=== PATIENT | male | born 1960 | race Caucasian/White ===

== ENCOUNTER 2019-07-25 09:51 | Outpatient (CLI) | payer OTHER, SELFPAY ==
[2019-07-25 10:14] LABS: Basophils # 0.1 10^3/uL (0.0-0.1); Basophils % 0.5 %; Eosinophils # 0.1 10^3/uL (0.0-0.8); Eosinophils % 1.1 %; Hematocrit 51.6 % (42.0-52.0); Hemoglobin 17.8 g/dL (11.7-16.6); Lymphocytes # 2.4 10^3/uL (0.8-4.8); Lymphocytes % 25.8 %; Mean Corpuscular HGB Conc 34.5 g/dL (30.0-36.0); Mean Corpuscular Volume 95.6 fL (80-94); Mean Platelet Volume 8.8 fL (7.4-10.4); Monocytes # 0.9 10^3/uL (0.2-0.9); Monocytes % 9.9 %; Neutrophils # 5.6 10^3/uL (1.8-7.7); Neutrophils % 61.8 %; Nucleated Red Blood Cells % 0 %; Platelet Count 203 10^3/cmm (130-400); Red Cell Distribution Width 12.8 % (12.1-15.1); White Blood Count 9.1 10^3/uL (4.0-10.0)
--- NOTE | 2019-07-25 10:15 | ECG_ITS ---
Measurements Intervals [place] Rate: 75 P: 41 [place]: 162 QRS: -1 QRSD: 90 T: 42 QT: 339 QTc: 379 SINUS RHYTHM No previous ECG available for comparison Electronically Signed On 07-25-2019 19:01:52 CDT by Raysa Henry M.D. [email or web address]
[2019-07-25 10:46] LABS: Anion Gap 16.9 (5-19); Blood Urea Nitrogen 12 mg/dL (8-23); Calcium 9.4 mg/dL (8.5-10.5); Carbon Dioxide 22 mmol/L (22-29); Chloride 97 mmol/L (98-107); Glomerular Filtration Rate 61.6 mL/min (90-130); Glucose 105 mg/dL (65-115); Osmolality Calculated 270 mOsm/kg (285-295); Potassium 3.9 mmol/L (3.5-5.1); Sodium 132 mmol/L (136-145)
== END 2019-07-25 09:52 | disposition home or self-care (01) ==
LOC: RT 09:54
PROVIDERS: PCP Family Medicine; Visit Provider Specialist
DX: Z01.810 Encounter for preprocedural cardiovascular examination (principal)
CPT/HCPCS: 36415; 80048; 85025; 93005

== ENCOUNTER → 2019-11-20 09:44 | Outpatient (BNVA) | payer OTHER, SELFPAY | PROVIDERS: PCP Family Medicine; Visit Provider Surgery | DX: Z20.828 Contact with and (suspected) exposure to other viral communicable diseases (principal); R11.2 Nausea with vomiting, unspecified | CPT/HCPCS: 87635 ==

== ENCOUNTER 2019-11-27 08:41 | Day surgery (SDC) | payer OTHER, SELFPAY ==
[2019-11-25 11:46] VITALS: BMI 24.7
[2019-11-27 08:57] VITALS: BP 159/106; PULSE 86; RESP 18; TEMP 36.8; O2SAT 96
[2019-11-27] MEDS: sodium chloride 0.9% 1,000 ML 30 ML IV (09:02)
--- NOTE | 2019-11-27 09:11 | W.PM.OPSUD ---
Surgery/Procedure H&P Update DATE OF PROCEDURE: November 27, 2019 DATE H&P PERFORMED: 10/31/19 H&P UPDATE INFORMATION: I have reviewed H&P completed within last 30 days, I have examined patient prior to procedure and No changes to prior documentation PREOP DIAGNOSIS: Nausea and vomiting PLANNED PROCEDURE: Operation Date: 11/27/19 09:45 Proposed Procedures p [id number] R11.2 K21.9(Not Applicable) - Evelio Watkins MD
--- NOTE | 2019-11-27 09:13 | ANES.PREANE2 ---
Pre-Anesthetic Assessment Pre-Anesthetic Assessment: Height/Weight: Height 1.83 m Weight 82.554 kg Temp Pulse Resp BP Pulse Ox 98.2 F 86 18 159/106 96 11/27/19 08:57 11/27/19 08:57 11/27/19 08:57 11/27/19 08:57 11/27/19 08:57 Preop Diagnosis: Nausea and vomiting Proposed Procedure: Operation Date: 11/27/19 09:45 Proposed Procedures p [id number] R11.2 K21.9(Not Applicable) - Evelio Watkins MD Familial anesthetic complications: none Was Beta Angela taken within 24 hours: N/A Last intake: Intake Last Liquid Date 11/26/19 Last Liquid Time 19:00 Last Solid Date 11/26/19 Last Solid Time 19:00 Social: Social History: No alcohol and No tobacco Comment: former smoker Exam: Pre-Anes Outpt Exam: alert, oriented x 3, clear to auscultation bilaterally and regular rate & rhythm Airway: Cervical ROM: WNL MP: 2 Dentition: False Pulmonary: Pulmonary: COPD CV/HEM: CV/HEM: HTN Metabolic: Metabolic: Hyperlipidemia Musc/skel: Musc/skel: Lower Back Pain Anesthetic Plan: ASA status: 3 Anesthesia: MAC Risk of > 500 ml blood loss (7ml/kg in children): No Meds/Allergies Current Medications: Current Medications Generic Name Dose Route Start Last Admin Trade Name Freq PRN Reason Stop Dose Admin Sodium Chloride 1,000 mls @ 30 ml s/hr 11/27/19 09:00 11/27/19 09:02 Sodium Chloride 0.9% IV 11/28/19 08:59 30 mls/hr .Q24H DASHAWN Administration PFSH Anesthesia PFSH: Medical History COPD (chronic obstructive pulmonary disease) GERD (gastroesophageal reflux disease) History of colon polyps Hypertension Surgical History History of appendectomy History of back surgery Hx of inguinal hernia surgery Status post colonoscopy Data Anesthesia Cardiac Studies: No Data to Display
[2019-11-27 09:35] VITALS: BP 140/93; PULSE 101; RESP 18; TEMP 36.6; O2SAT 97
--- NOTE | 2019-11-27 09:39 | ANE.PACU2 ---
Inpatient post-anesthesia follow up: Airway intact: Yes Vital signs: Temperature 97.8 F Pulse Rate 101 Respiratory Rate 18 Blood Pressure 140/93 Pulse Oximetry 97 Oxygen Delivery Me thod Nasal Cannula Oxygen Flow Rate 3 Fraction of Inspir ed Oxygen Hydration adequate: Yes Nausea and vomiting: No Pain level: 1 Mental status: Baseline
[2019-11-27 09:44] VITALS: BP 127/85; PULSE 81; RESP 18; O2SAT 98
== END 2019-11-27 09:53 | disposition home or self-care (01) ==
PROVIDERS: PCP Family Medicine; Visit Provider Surgery
PROC: 0DJ08ZZ Inspection of Upper Intestinal Tract, Via Natural or Artificial Opening Endoscopic (ICD-10-PCS; CPT 43235; principal; 2019-11-27 09:45)
DX: R11.2 Nausea with vomiting, unspecified (principal); K29.70 Gastritis, unspecified, without bleeding; K44.9 Diaphragmatic hernia without obstruction or gangrene; J44.9 Chronic obstructive pulmonary disease, unspecified; I10 Essential (primary) hypertension; E78.5 Hyperlipidemia, unspecified; K21.9 Gastro-esophageal reflux disease without esophagitis
CPT/HCPCS: 12345; 43239; 88305; J2704; J7030

== ENCOUNTER 2019-12-23 09:51 | Outpatient (CLI) | payer OTHER, SELFPAY ==
--- NOTE | 2019-12-23 10:00 | NM_ITS ---
WS: [id number] NUCLEAR MEDICINE HIDA SCAN WITH GALLBLADDER EJECTION FRACTION HISTORY: right upper quadrant pain COMPARISON: None available. TECHNIQUE: The patient was intravenously injected with 7.7 mCi of TC99m Mebrofenin. Immediate imaging over the right upper quadrant was followed by 5 minute image and additional images for a total of 60 minutes. Normal uptake of radiotracer throughout the liver. Activity identified in the gallbladder at 40 minutes and well distended by 60 minutes. Activity in the proximal small bowel was seen by 20 minutes. Good washout of the radiotracer from the liver by 60 minutes. The patient then drank 8 ounces of Ensure Plus. Ejection fraction at 60 minutes was 85%. Normal GB ej ection fraction is 35-75%. Post fatty meal symptoms: None. NM/NM hepatobiliary w phar* [id number] IMPRESSION: 1. Normal HIDA scan. 2. Normal gallbladder ejection fraction.
== END 2019-12-23 09:52 | disposition home or self-care (01) ==
PROVIDERS: PCP Family Medicine; Visit Provider Surgery
DX: R10.11 Right upper quadrant pain (principal)
CPT/HCPCS: 78227; A9537

== ENCOUNTER → 2020-01-08 10:18 | Outpatient (BNVA) | payer OTHER, SELFPAY | PROVIDERS: PCP Family Medicine; Visit Provider Surgery | DX: R10.11 Right upper quadrant pain (principal) | CPT/HCPCS: 87635 ==

== ENCOUNTER 2020-01-12 13:28 | Outpatient (CLI) | payer OTHER, SELFPAY ==
[2020-01-12] MEDS: iohexol 300 mg/mL 50 mL Btl PO (13:33)
[2020-01-12 14:56] LABS: Blood Urea Nitrogen 12 mg/dL (8-23); Glomerular Filtration Rate 67.8 mL/min (90-130)
--- NOTE | 2020-01-12 15:00 | CT_ITS ---
WS: [id number] Exam: CT abdomen pelvis w con* [id number] Date/Time of Exam: 01/12/2020 1:32 PM Reason For Exam: R10.11 - Right upper quadrant pain DLP: 1160.[address] scans at [facility] use at least one of these dose optimization techniques: automat ed exposure control; mA and/or kV adjustment per patient size (includes targeted exams where dose is matched to clinical indication); or iterative reconstruction. Comparison 07/15/2018. Minimal infiltrates in the bilateral lower lobes. Moderate size hiatal hernia. Fatty liver. The gallb ladder is unremarkable. The spleen, pancreas and aorta appear normal. The portal vein and IVC are pat ent. The abdominal aorta is normal in caliber. 2.3 cm left renal cyst. Tiny subcentimeter right renal cyst. The kidneys are otherwise normal in appearance. Unremarkable adrenal glands. No free air. No l ymphadenopathy. Small bowel loops are not dilated. The appendix is surgically absent. No significant large bowel abnormality seen. Fat filled left inguinal hernia. Intact urinary bladder. No pelvic mass or lymphadenopathy. No destructive bone lesions. CT/CT abdomen pelvis w con* [id number] IMPRESSION: 1. Moderate-sized hiatal hernia. 2. Fat filled left inguinal hernia. 3. No mass, lymphadenopathy or acute finding in the abdomen or pelvis. 4. Minimal infiltrates in the bilateral lower lobes. Developing pneumonia is no t excluded.
[2020-01-12] MEDS: iohexol 300 mg/mL 100 mL Btl IV (15:03)
== END 2020-01-12 13:29 | disposition home or self-care (01) ==
PROVIDERS: PCP Family Medicine; Visit Provider Surgery
DX: R10.11 Right upper quadrant pain (principal); K44.9 Diaphragmatic hernia without obstruction or gangrene; K40.90 Unilateral inguinal hernia, without obstruction or gangrene, not specified as recurrent; R91.8 Other nonspecific abnormal finding of lung field
CPT/HCPCS: 74177; 82565; 84520; Q9967

== ENCOUNTER 2020-01-14 08:56 | Day surgery (SDC) | payer OTHER, SELFPAY ==
[2020-01-13 13:48] VITALS: BMI 23.6
[2020-01-14] VITALS (16 sets, daily range): BP systolic 131–176; BP diastolic 68–126; PULSE 80–98; RESP 15–18; TEMP 36.6–37.3; O2SAT 93–99
[2020-01-14] MEDS: sodium chloride 0.9% 1,000 ML 30 ML IV (09:34)
--- NOTE | 2020-01-14 09:55 | ANES.PREANE2 ---
Pre-Anesthetic Assessment Pre-Anesthetic Assessment: Height/Weight: Height 1.83 m Weight 79.01 kg Temp Pulse Resp BP Pulse Ox 98.1 F 84 18 143/117 96 01/14/20 09:14 01/14/20 09:14 01/14/20 09:14 01/14/20 09:14 01/14/20 09:14 Preop Diagnosis: Nausea and vomiting Proposed Procedure: Operation Date: 01/14/20 10:35 Proposed Procedures p Laparoscopic possible open Cholecystectomy 91247 R10.11(Not Applicable) - Evelio Watkins MD Familial anesthetic complications: None Was Beta Angela taken within 24 hours: N/A Last intake: Intake Last Liquid Date 01/13/20 Last Liquid Time 20:00 Last Solid Date 01/13/20 Last Solid Time 17:30 Social: Social History: Alcohol Comment: 1-2 glasses of whiskey and coke a night (denies any withdrawal) Exam: Pre-Anes Outpt Exam: alert, oriented x 3, clear to auscultation bilaterally and regular rate & rhythm Airway: Cervical ROM: WNL MP: 3 Dentition: Full Pulmonary: Pulmonary: COPD CV/HEM: CV/HEM: HTN GI: GI: GERD Anesthetic Plan: ASA status: 3 Anesthesia: General Risk of > 500 ml blood loss (7ml/kg in children): No Meds/Allergies Current Medications: Current Medications Generic Name Dose Route Start Last Admin Trade Name Freq PRN Reason Stop Dose Admin Sodium Chloride 1,000 mls @ 30 ml s/hr 01/14/20 07:30 01/14/20 09:34 Sodium Chloride 0.9% IV 01/15/20 07:29 30 mls/hr .Q24H DASHAWN Administration PFSH Anesthesia PFSH: Medical History (Updated 12/30/19 @ 16:28 by Evelio Watkins MD) COPD (chronic obstructive pulmonary disease) GERD (gastroesophageal reflux disease) History of colon polyps Hypertension Surgical History H/O esophagogastroduodenoscopy (11/27/19) hiatal hernia, gastritis History of appendectomy History of back surgery Hx of inguinal hernia surgery Status post colonoscopy Data Anesthesia Cardiac Studies: No Data to Display
--- NOTE | 2020-01-14 13:05 | PM.OP ---
Operative Report Date of procedure: January 14, 2020 Pre-op Diagnosis: Chronic cholecystitis Post-op diagnosis: same Procedure Done: Laparoscopic cholecystectomy Specimens removed/disposition: Gallbladder Surgeon: Evelio Watkins Anesthesia: General Procedure: The patient was taken to the operating room and was intubated under general anesthesia. After the antibiotic had been administered, the abdomen was prepped and draped in a sterile manner. Using a #15 blade, a 1 centimeter infraumbilical curvilinear incision was made and using an open Angel technique the peritoneal cavity was entered. A 10 millimeter port was placed and 15 millimeters of pneumoperitoneum was created. A 10 millimeter, 30 degrees scope was then introduced. Three 5 millimeter ports were placed in the epigastric, midclavicular and the anterior axillary line two fingerbreadths below the costal margin on the right side under the direct visualization. Ratcheted forceps were introduced into the lateral most port and was used to retract the fundus of the gallbladder cephalad and using forceps the infundibulum of the gallbladder was retracted laterally. Using L-hook cautery the peritoneum overlying the Calot's triangle was opened medially and laterally until the cystic duct and the cystic artery were skeletonized. Dissection was carried along the body of the gallbladder and after ensuring critical view of safety, 4 clips applied on the cystic duct and 3 clips applied on the cystic artery and cut leaving, 3 clips on the remaining portion of the duct and 2 clips on the remaining portion of the artery. The rest of the gallbladder was dissected off the liver using L-hook cautery. There was a small opening in the body of the gallbladder with spillage of bile which was irrigated and suctioned out. There was no spillage of stones noted. There was no bleeding or bile leaking noted from the gallbladder fossa and the clips appeared to be in place. An EndoCatch bag was introduced to remove the gallbladder. All the ports were removed under direct visualization and there was no bleeding noted from the port sites. The fascia of the umbilicus was closed using [id number] 0 Vicryl sutures and the subcutaneous tissue was approximated using 3-0 Vicryl sutures. The skin at all four ports were closed using 4-0 Monocryl and Dermabond. A total of 10 millimeters of 0.5% Marcaine was infiltrated around the port sites. The patient was stable throughout the procedure.
[2020-01-14] MEDS: fentaNYL 50 mcg/mL INJ 2mL IVP ×2 (13:11→13:16)
[2020-01-14] MEDS: morphine 4 mg/mL SDV 1 mL 2 MG IVP ×2 (13:22→13:28)
[2020-01-14] MEDS: HYDROcodone-acetaminophen 5-325 mg Tablet 1 TAB PO (13:59)
--- NOTE | 2020-01-14 21:07 | ANE.PACU2 ---
Inpatient post-anesthesia follow up: Airway intact: Yes Vital signs: Temperature 97.9 F Pulse Rate 84 Respiratory Rate 18 Blood Pressure 131/94 Pulse Oximetry 93 Oxygen Delivery Me thod Room Air Oxygen Flow Rate 8 Fraction of Inspir ed Oxygen Hydration adequate: Yes Nausea and vomiting: No Pain level: 2 Mental status: Baseline
--- NOTE | 2020-01-15 14:44 | W.PM.OPSUD ---
Surgery/Procedure H&P Update DATE OF PROCEDURE: January 14, 2020 DATE H&P PERFORMED: 12/30/19 H&P UPDATE INFORMATION: I have reviewed H&P completed within last 30 days, I have examined patient prior to procedure and No changes to prior documentation PREOP DIAGNOSIS: Chronic cholecystitis PLANNED PROCEDURE: Operation Date: 01/14/20 10:35 Proposed Procedures p Laparoscopic possible open Cholecystectomy 99521 R10.11(Not Applicable) - Evelio Watkins MD
== END 2020-01-14 14:15 | disposition home or self-care (01) ==
PROVIDERS: PCP Family Medicine; Visit Provider Surgery
PROC: 0FT44ZZ Resection of Gallbladder, Percutaneous Endoscopic Approach (ICD-10-PCS; CPT 47562; principal; 2020-01-14 10:35)
DX: K81.1 Chronic cholecystitis (principal); J44.9 Chronic obstructive pulmonary disease, unspecified; I10 Essential (primary) hypertension; K21.9 Gastro-esophageal reflux disease without esophagitis; Z79.82 Long term (current) use of aspirin
CPT/HCPCS: 47562; 12345; 88304; J0690; J1100; J2250; J2270; J2405; J2704; J2710; J3010; J3490; J7030

== ENCOUNTER 2020-02-25 11:49 | Emergency (ER) | payer OTHER, SELFPAY ==
[2020-02-25 12:11] VITALS: BP 160/89; PULSE 101; RESP 16; TEMP 36.7; O2SAT 94; BMI 23.7
[2020-02-25 12:14] VITALS: BP 148/98; PULSE 90; RESP 20; TEMP 36.6; O2SAT 95
--- NOTE | 2020-02-25 12:18 | XR_ITS ---
WS: [id number] Exam: XR chest 1V portable [id number] Date/Time of Exam: 02/25/2020 12:18 PM Reason For Exam: n/v/d No priors. Findings: The lungs are clear and fully expanded. Costophrenic angles are sharp. No infiltrates. Bronchovascula r relief appears normal. Cardiac silhouette is unremarkable. Bony elements are intact. XR/XR chest 1V portable [id number] IMPRESSION: Unremarkable chest radiograph.
--- NOTE | 2020-02-25 12:19 | XR_ITS ---
WS: [id number] Exam: XR KUB [id number] Date/Time of Exam: 02/25/2020 12:19 PM Reason For Exam: n/v/d Mild gaseous distention of several small bowel loops in the upper right quadrant. There is scattered gas in the large bowel. No free air noted. Visualized organ margins are intact. Signs of prior cholec ystectomy. Moderate degenerative changes of the lumbar spine. Circular metallic density superimposing the right pelvic region. This may represent a soft tissue foreign body or metallic density in the GI tract. XR/XR KUB [id number] IMPRESSION: 1. Findings most suggestive of mild ileus. No sign of delgado bowel obstruction o r pneumoperitoneum.
--- NOTE | 2020-02-25 12:36 | ED_ITS ---
HPI - Nausea/Vomiting/Diarrhea General: Chief complaint: Nausea/Vomiting/Diarrhea Stated complaint: N/V, HOWARD Time Seen by Provider: 02/25/20 12:17 Source: patient Mode of arrival: ambulatory Limitations: no limitations History of Present Illness: HPI Narrative: Pleasant 60-year-old male patient presents to the emergency department with 7-day history of nausea vomiting diarrhea. States at onset of nausea vomiting 7 days ago, states hurt all over, even my hair hurts . He reports recent gallbladder removal in December 2019. States incision site healing, denies complications since surgery. Surgery completed by Dr. Watkins. He denies ill contacts, states has emphysema and has a quarantine himself to home as he does not want to be infected with Covid due to his lung disease. He denies change in breathing pattern, change of sputum from baseline or cough. Reports onset of nausea vomiting diarrhea x7 days, last attempted to eat last night but vomited it up. Reports diarrhea is chronic, almost daily. Relates diarrhea to recent cholecystectomy. He also reports chronic bloating of the abdomen, denies chest pain. MD elicited complaint: nausea, vomiting, diarrhea and abdominal pain (slight RUQ) Pertinent past history: abdominal surgery (Cholecystectomy) Onset (ago): day(s) (7) Description of vomiting: food contents and watery Description of diarrhea: other (Brown loose) Associated nausea: Yes Associated abdominal pain: Yes Location of pain: RUQ and Other (Dull ache) Pain consistency: intermittent Severity: mild Pain scale (0-10): 2 Quality: dull Exacerbating factors: eating Relieving factors: none Context: recent surgery/procedure and history of abdominal surgery Associated symtoms: Reports bloating, cough (Chronic), fatigue, fevers/chills, headache(s), malaise, myalgias, nausea and short of breath; Denies anxiety, chest pain, dysuria or palpitations Treatment prior to arrival: immodium Review of Systems General: Reports: 10 or more systems reviewed and unremarkable except in HPI and below Const: Reports: chills, body aches, fatigue and malaise; Denies: fever(s) Eyes: Denies: blurry vision, eye discomfort, eye redness or yellow eyes ENMT: Denies: throat pain, dental pain or disequilibrium Card: Reports: dyspnea on exertion (chronic); Denies: chest pain, palpitations, irregular heart rhythm, edema or swelling of feet/ankles Resp: Reports: non-productive cough; Denies: dyspnea, productive cough, wheezing, pain on inspiration, hemoptysis or chest congestion GI: Reports: abdominal pain, nausea, vomiting, diarrhea and bloating; Denies: hematemesis, heartburn, constipation, GI cramping or pain on defecation : Denies: dysuria Musc: Reports: muscle weakness; Denies: neck pain, back pain, joint pain or joint swelling Skin/Breast: Denies: rash or pruritus Neuro: Reports: headache(s) Psych: Denies: anxiety, depression or change in appetite Cesar/Lymph: Denies: easy bruising PFSH ED PFSH: Medical History COPD (chronic obstructive pulmonary disease) GERD (gastroesophageal reflux disease) History of colon polyps Hypertension Surgical History H/O esophagogastroduodenoscopy (11/27/19) hiatal hernia, gastritis History of appendectomy History of back surgery Hx of inguinal hernia surgery Status post colonoscopy Status post laparoscopic cholecystectomy (01/14/20) Social History Smoking and tobacco status: former smoker Alcohol intake: current Alcohol intake frequency: 0-2 Drinks per Day Physical Exam Const: COMMON NORMALS: no acute distress, patient oriented x3, healthy appearing, alert and well nourished GENERAL APPEARANCE: cooperative, comfortable, well kempt, well developed and well hydrated; not in distress NUTRITIONAL APPEARANCE: thin ORIENTATION/CONSCIOUSNESS: Yes awake, Yes oriented to person, Yes oriented to place and Yes oriented to time HENMT: COMMON NORMALS: normocephalic, atraumatic, Normal external nose present and moist oral mucous membranes HEAD & SCALP: normal to inspection, no rmocephalic and atraumatic FACE & SINUS: normal facial exam and face symmetric NOSE: Normal external nose present MOUTH: moist mucous membranes abnormal Details: cracked Eye: COMMON NORMALS: Equal, round and reactive pupils present and EOMs intact bilaterally GENERAL EYE: appearance normal, both eyes and all related structures PUPIL: Yes Equal, round and reactive pupils present Neck/C-Spine: COMMON NORMALS: full ROM, no lymphadenopathy and supple GENERAL: Yes normal visual inspection and Yes trachea midline CERVICAL SPINE: Yes cervical ROM normal Lymph: LYMPHATIC: no lymphadenopathy noted Chest: COMMONS NORMALS: normal inspection of the chest and normal palpation of entire chest wall Resp: COMMON NORMALS: normal respiratory effort, No retractions and No use of accessory muscles EFFORT & INSPECTION: Yes able to speak in complete sentences and Yes labored (with exertion) AUSCULTATION: diminished lung sounds bilateral in the lower lung bolivar Cardio: COMMON NORMALS: regular rhythm, S1 normal heart sound present, S2 normal heart sound present and Peripheral pulses 2+ throughout RHYTHM: regular rhythm HEART SOUNDS: S1 normal heart sound present and S2 normal heart sound present PERIPHERAL PULSES: Peripheral pulses 2+ throughout GI: COMMON NORMALS: Soft to palpation INSPECTION: Yes normal to inspection, No abdominal wall ecchymosis, Yes abdominal distension, No central obesity, Yes scar (RUQ and central x 3 - healing) and No visible pulsation AUSCULTATION: Yes Hypoactive bowel sounds present PALPATION: Yes Soft to palpation and Yes Tenderness to palpation present (GI) Details: RUQ (mild) : COMMON NORMALS: Yes no CVA tenderness BLADDER/KIDNEY EXAM: Yes no CVA tenderness Back/Pelvis: COMMON NORMALS: no CVA tenderness and thoracic and lumbar spine normal to inspection Extremity: COMMON NORMALS: normal to inspection and capillary refill normal Neuro: COMMON NORMALS: patient oriented x3 and no focal motor deficits SENSORIUM/ORIENTATION: Yes alert, Yes oriented to person, Yes oriented to place and Yes oriented to time Psych: COMMON NORMALS: mental status grossly normal, Normal thought process present and cooperative APPEARANCE: Yes well kempt ACTIVITY/MOTOR BEHAVIOR: Yes appropriate eye contact THOUGHT PROCESS: Normal thought process present Skin: COMMON NORMALS: no rashes or lesions noted and turgor normal GENERAL SKIN EXAM: no rashes or lesions noted and turgor normal Course Vital Signs: Vital signs: Vital Signs Temperature 97.9 F 02/25/20 12:14 Pulse Rate 92 02/25/20 15:02 Respiratory Rate 18 02/25/20 15:02 Blood Pressure 147/83 02/25/20 16:54 Pulse Oximetry 96 02/25/20 15:02 MDM - Nausea/Vomiting/Diarrhea MDM Narrative: Medical decision making narrative: 60-year-old male patient presents to the emergency department with nausea vomiting diarrhea, fluid replacement provided here in the ED via IV, Zofran administered for nausea, patient was able to tolerate p.o. fluids by the end of his stay without nausea or vomiting. Covid screen was negative, influenza screen is negative, white blood count without acute abnormalities, comprehensive metabolic panel with elevation of liver enzymes, slight, lipase slightly elevated, CT scan of the abdomen pelvis did not reveal acute abnormality, questionable ileus visualized on KUB of the abdomen. He requested to go home, states feeling much better, agrees to return the emergency department if he develops further nausea vomiting with use of Zofran. Agrees to follow-up with his primary care provider next week for reevaluation. Lab Data: Labs: Lab Results 02/25/20 02/25/20 02/25/20 Range/Units 12:55 13:03 13:03 WBC 5.3 (4.0-10.0) 10^3/ uL RBC 5.14 (4.1-5.3) 10^6/u L Hgb 17.7 H (11.7-16.6) g/dL Hct 50.7 (42.0-52.0) % MCV 98.6 H (80-94) fL MCH 34.4 H (28.0-34.0) pg MCHC 34.9 (30.0-36.0) g/dL RDW 13.2 (12.1-15.1) % Plt Count 119 L (130-400) 10^3/c mm MPV 9.6 (7.4-10.4) fL Neut % (Auto) 67.8 % Lymph % (Auto) 22.1 % Page % (Auto) 9.5 % Eos % (Auto) 0.0 % Baso % (Auto) 0.2 % Neut # (Auto) 3.57 (1.8-7.7) 10^3/u L Lymph # (Auto) 1.2 (0.8-4.8) 10^3/u L Page # (Auto) 0.5 (0.2-0.9) 10^3/u L Eos # (Auto) 0.0 (0.0-0.8) 10^3/u L Baso # (Auto) 0.0 (0.0-0.1) 10^3/u L Nucleated RBC % (a uto) 0 % Nucleated RBCs # 0.0 /100WBC Sodium 133 L (136-145) mmol/L Potassium 3.9 (3.5-5.1) mmol/L Chloride 98 (98-107) mmol/L Carbon Dioxide 23 (22-29) mmol/L Anion Gap 15.9 (5-19) BUN 17 (8-23) mg/dL Creatinine 1.1 (0.7-1.2) mg/dL GFR Calculation 67.8 L (90-130) mL/min Glucose 100 (65-115) mg/dL Calculated Osmolal ity 278 L (285-295) mOsm/k g Calcium 8.6 (8.5-10.5) mg/dL Total Bilirubin 0.6 (0.15-1.2) mg/dL AST 77 H (0-40) U/L ALT 74 H (0-41) U/L Alkaline Phosphata se 144 H (40-130) IU/L Total Protein 6.9 (6.6-8.7) g/dL Albumin 3.6 (3.5-5.2) g/dL Globulin 3.3 (1.3-4.6) g/dL Lipase 93 H (13-60) U/L Urine Color Dark yellow (Yellow) Urine Appearance Clear (CLEAR) Urine pH 6 (5-7) Ur Specific Gravit y 1.020 (1.005-1.030) Urine Protein 1+ H (Negative) Urine Glucose (UA) Norm (Normal) Urine Ketones 2+ H (Negative) Urine Blood Neg (Negative) Urine Nitrate Negative (Negative) Urine Bilirubin 1+ H (Negative) Urine Urobilinogen 4 H (Negative) mg/dL Ur Leukocyte Shanta ase Negative (Negative) Urine RBC 0-4 H (0-2) /hpf Urine WBC None (0-5) /hpf Ur Squamous Epith Cells 0-4 H (0-5) /hpf Amorphous Sediment Not Reportable Urine Bacteria Trace (NONE) /hpf Urine Mucus 4+ /hpf Influenza Type A A g (Negative) Influenza Type B A g (Negative) SARS-CoV-2 Ag (Rap id) (Negative) 02/25/20 02/25/20 Range/Units 13:03 13:03 WBC (4.0-10.0) 10^3/ uL RBC (4.1-5.3) 10^6/u L Hgb (11.7-16.6) g/dL Hct (42.0-52.0) % MCV (80-94) fL MCH (28.0-34.0) pg MCHC (30.0-36.0) g/dL RDW (12.1-15.1) % Plt Count (130-400) 10^3/c mm MPV (7.4-10.4) fL Neut % (Auto) % Lymph % (Auto) % Page % (Auto) % Eos % (Auto) % Baso % (Auto) % Neut # (Auto) (1.8-7.7) 10^3/u L Lymph # (Auto) (0.8-4.8) 10^3/u L Page # (Auto) (0.2-0.9) 10^3/u L Eos # (Auto) (0.0-0.8) 10^3/u L Baso # (Auto) (0.0-0.1) 10^3/u L Nucleated RBC % (a uto) % Nucleated RBCs # /100WBC Sodium (136-145) mmol/L Potassium (3.5-5.1) mmol/L Chloride (98-107) mmol/L Carbon Dioxide (22-29) mmol/L Anion Gap (5-19) BUN (8-23) mg/dL Creatinine (0.7-1.2) mg/dL GFR Calculation (90-130) mL/min Glucose (65-115) mg/dL Calculated Osmolal ity (285-295) mOsm/k g Calcium (8.5-10.5) mg/dL Total Bilirubin (0.15-1.2) mg/dL AST (0-40) U/L ALT (0-41) U/L Alkaline Phosphata se (40-130) IU/L Total Protein (6.6-8.7) g/dL Albumin (3.5-5.2) g/dL Globulin (1.3-4.6) g/dL Lipase (13-60) U/L Urine Color (Yellow) Urine Appearance (CLEAR) Urine pH (5-7) Ur Specific Gravit y (1.005-1.030) Urine Protein (Negative) Urine Glucose (UA) (Normal) Urine Ketones (Negative) Urine Blood (Negative) Urine Nitrate (Negative) Urine Bilirubin (Negative) Urine Urobilinogen (Negative) mg/dL Ur Leukocyte Shanta ase (Negative) Urine RBC (0-2) /hpf Urine WBC (0-5) /hpf Ur Squamous Epith Cells (0-5) /hpf Amorphous Sediment Urine Bacteria (NONE) /hpf Urine Mucus /hpf Influenza Type A A g Negative (Negative) Influenza Type B A g Negative (Negative) SARS-CoV-2 Ag (Rap id) Negative (Negative) Imaging Data^: CXR: Radiologist's impression: [facility] [address] [address] XRay Report Signed Patient: Marques Jones Unit #: [id number] : 1960 Age/Sex: 60 / M ADM Date: 02/25/20 Loc: ER Room/Bed: Attending Dr: Ordering Provider/Ordering MD: Leticia Ruelas Date of Service: 02/25/20 Procedure(s): XR chest 1V portable [id number] Accession Number(s): [id number] Report Number: [id number] WS: [id number] Exam: XR chest 1V portable [id number] Date/Time of Exam: 02/25/2020 12:18 PM Reason For Exam: n/v/d No priors. Findings: The lungs are clear and fully expanded. Costophrenic angles are sharp. No infiltrates. Bronchovascular relief appears normal. Cardiac silhouette is unremarkable. Bony elements are intact. XR/XR chest 1V portable [id number] IMPRESSION: Unremarkable chest radiograph. Dictated By: Flaco Yepez DO Signed By: Flaco Yepez DO Signed Date/Time: 02/25/20 1237 DD/ 1236 Other Xray: Radiologist's impression: [facility] [address] [place] [address] XRay Report Signed Patient: Marques Jones Unit #: [id number] : 1960 Age/Sex: 60 / M ADM Date: 02/25/20 Loc: ER Room/Bed: Attending Dr: Ordering Provider/Ordering MD: Leticia Ruelas Date of Service: 02/25/20 Procedure(s): XR KUB [id number] Accession Number(s): [id number] Report Number: [id number] WS: [id number] Exam: XR KUB [id number] Date/Time of Exam: 02/25/2020 12:19 PM Reason For Exam: n/v/d Mild gaseous distention of several small bowel loops in the upper right quadrant. There is scattered gas in the large bowel. No free air noted. Visualized organ margins are intact. Signs of prior cholecystectomy. Moderate degenerative changes of the lumbar spine. Circular metallic density superimposing the right pelvic region. This may represent a soft tissue foreign body or metallic density in the GI tract. XR/XR KUB [id number] IMPRESSION: 1. Findings most suggestive of mild ileus. No sign of delgado bowel obstruction or pneumoperitoneum. Dictated By: Flaco Yepez DO Signed By: Flaco Yepez DO Signed Date/Time: 02/25/20 1240 DD/ 1237 Discharge Plan Discharge Patient Disposition: Home Clinical Impression: Gastroenteritis Abdominal pain Qualifiers: Abdominal location: generalized Qualified Code(s): R10.84 - Generalized abdominal pain Condition: Stable Prescriptions: New Zofran 4 mg tablet 4 mg PO Q4H 5 Days Qty: 14 RF: 0 No Action lisinopril 10 mg tablet 10 mg PO DAILY@07 RF: 0 omeprazole 40 mg capsule,delayed release(DR/EC) 40 mg PO BID@, RF: 0 budesonide-formoterol [Symbicort] 160-4.5 mcg/actuation HFA aerosol inhaler 2 puff INHALATION BID RF: 0 albuterol sulfate 1.25 mg/3 mL solution for nebulization 1.25 mg INHALATION QID PRN (Reason: Dyspnea) RF: 0 albuterol sulfate 90 mcg/actuation aerosol powdr breath activated 2 inh INHALATION Q6H PRN (Reason: Dyspnea) RF: 0 montelukast [Singulair] 4 mg Granules In Packet 10 mg PO DAILY@07 RF: 0 amlodipine 5 mg Tablet 5 mg PO DAILY@07 RF: 0 Imodium 2 mg Capsule 2 mg PO DAILY PRN (Reason: Diarrhea) RF: 0 hydrocodone-acetaminophen 5-325 mg Tablet 1 tab PO Q6H PRN (Reason: Pain) RF: 0 Discharge Orders: Discharge ED (Routine); Ordered 02/25/20 Ordered By: Leticia Ruelas Referrals: Dillan Harmon [Primary Care Provider] - Discharge Diet: Advance as tolerated and Clear Liquid Discharge Activity: Limit activity as instructed Patient Instructions: Acute Nausea and Vomiting (ED), Abdominal Pain (ED) Activity Restrictions/Additional Instructions: Push fluids - lots of fluids will be needed, clear liquid diet then advance to solid foods, avoid greasy fried fatty foods as this will cause stomach irritation May continue Imodium and take as needed for diarrhea Return to the emergency department if you develop inability to breathe, increased abdominal pain with vomiting despite use of Zofran or other concerning symptoms Follow-up with your primary care in 7 days for emergency room visit. Coding Level of Care Code ED Web Page Designer for Lou Fwd Exam Comprehensive
[2020-02-25 12:44] VITALS: BP 148/94; PULSE 92; RESP 18; O2SAT 94
--- NOTE | 2020-02-25 12:46 | CTR_ITS ---
PROCEDURE INFORMATION: Exam: CT Abdomen And Pelvis With Contrast Exam date and time: 02/25/2020 12:54 PM Age: 60 years old Clinical indication: Nausea and vomiting and other: Diarrhea; Prior surgery; Surgery type: Gb, hernia, back , appy; Additional info: N/v/d TECHNIQUE: Imaging protocol: Computed tomography of the abdomen and pelvis with intravenous contrast. Radiation optimization: All CT scans at this facility use at least one of these dose optimization techniques: automated exposure control; mA and/or kV adjustment per patient size (includes targeted exams where dose is matched to clinical indication); or iterative reconstruction. Contrast material: OMNI 300; Contrast volume: 95 ml; Contrast route: INTRAVENOUS (IV); COMPARISON: CT abdomen pelvis w con* [id number] 01/12/2020 2:59 PM RADIATION DOSE METRICS: Total DLP (mGy-cm): 568.5 FINDINGS: Liver: Findings consistent with fatty infiltration of the liver are identified. Gallbladder and bile ducts: There has been a cholecystectomy. Pancreas: Normal. No ductal dilation. Spleen: Normal. No splenomegaly. Adrenal glands: Normal. No mass. Kidneys and ureters: There is a 2.1 cm cyst in the mid left kidney. No renal calcification or hydronephrosis. Stomach and bowel: Unremarkable. No obstruction. No mucosal thickening. Appendix: There has been an appendectomy. Intraperitoneal space: Unremarkable. No free air. No significant fluid collection. Vasculature: Unremarkable. No abdominal aortic aneurysm. Lymph nodes: Unremarkable. No enlarged lymph nodes. Urinary bladder: Unremarkable as visualized. Reproductive: Unremarkable as visualized. Bones/joints: Degenerative change is identified in the spine. There is no evidence for acute fracture or malalignment. Soft tissues: There is fat in the left inguinal canal. CT/CT abdomen pelvis w con* [id number] IMPRESSION: There are no acute concerning abnormalities. COMMENTS: Consistent with the [employer]'s Incidental Findings Committee white paper (J Am Bobby Radiol 2018): Any incidental renal lesion less than 1 cm or classified as too small to characterize, or any incidental cystic renal lesion characterized as simple-appearing, is likely benign. No follow-up imaging is recommended for these lesions per consensus recommendations based on imaging criteria. Radiation Dose CTDIVOL = (mGy): DLP = 568.5 (mGy-cm)
[2020-02-25 13:09] VITALS: BP 148/94; PULSE 93; RESP 20; O2SAT 94
[2020-02-25 13:20] LABS: Basophils % 0.2 %; Hematocrit 50.7 % (42.0-52.0); Hemoglobin 17.7 g/dL (11.7-16.6); Lymphocytes # 1.2 10^3/uL (0.8-4.8); Lymphocytes % 22.1 %; Mean Corpuscular HGB Conc 34.9 g/dL (30.0-36.0); Mean Corpuscular Hemoglobin 34.4 pg (28.0-34.0); Mean Corpuscular Volume 98.6 fL (80-94); Mean Platelet Volume 9.6 fL (7.4-10.4); Monocytes # 0.5 10^3/uL (0.2-0.9); Monocytes % 9.5 %; Neutrophils # 3.57 10^3/uL (1.8-7.7); Neutrophils % 67.8 %; Nucleated Red Blood Cells % 0 %; Platelet Count 119 10^3/cmm (130-400); Red Blood Count 5.14 10^6/uL (4.1-5.3); Red Cell Distribution Width 13.2 % (12.1-15.1); White Blood Count 5.3 10^3/uL (4.0-10.0)
[2020-02-25 14:09] LABS: Albumin Level 3.6 g/dL (3.5-5.2); Alkaline Phosphatase 144 IU/L (40-130); Anion Gap 15.9 (5-19); Aspartate Amino Transferase 77 U/L (0-40); Blood Urea Nitrogen 17 mg/dL (8-23); Calcium 8.6 mg/dL (8.5-10.5); Carbon Dioxide 23 mmol/L (22-29); Chloride 98 mmol/L (98-107); Globulin 3.3 g/dL (1.3-4.6); Glomerular Filtration Rate 67.8 mL/min (90-130); Glucose 100 mg/dL (65-115); Lipase 93 U/L (13-60); Osmolality Calculated 278 mOsm/kg (285-295); Potassium 3.9 mmol/L (3.5-5.1); Sodium 133 mmol/L (136-145); Total Bilirubin 0.6 mg/dL (0.15-1.2); Total Protein 6.9 g/dL (6.6-8.7)
[2020-02-25 14:50] LABS: Alanine Aminotransferase 74 U/L (0-41)
[2020-02-25 15:02] VITALS: BP 149/98; PULSE 92; RESP 18; O2SAT 96
[2020-02-25] MEDS: sodium chloride 0.9% 500 ML IV (15:19)
[2020-02-25] MEDS: iohexol 300 mg/mL 100 mL Btl IV (15:29)
[2020-02-25 15:31] LABS: Influenza A by IFA Negative (Negative); Influenza B by IFA Negative (Negative); SARS Covid-2 Antigen Negative (Negative)
[2020-02-25 15:33] LABS: Add Urine Microscopic? YES; Bilirubin Urine 1+ (Negative); Blood Urine Neg (Negative); Glucose Urine UA Norm (Normal); Ketones Urine 2+ (Negative); Leukocyte Esterase Urine Negative (Negative); Nitrate Urine Negative (Negative); Protein Urine 1+ (Negative); Urine Appearance Clear (CLEAR); Urine Color Dark Yellow (Yellow); Urobilinogen Urine 4 mg/dL (Negative); pH Urine 6 (5-7)
[2020-02-25 15:37] LABS: Bacteria Urine TRACE /hpf; RBC Urine 0-4 /hpf (0-2); Squamous Epithelial Cell Urine 0-4 /hpf (0-5)
[2020-02-25 15:38] LABS: Add Urine Culture? No; Mucus Urine 4+ /hpf
[2020-02-25 16:54] VITALS: BP 147/83
== END 2020-02-25 16:55 | disposition home or self-care (01) ==
PROVIDERS: Emergency Provider Nurse Practitioner Family; PCP Family Medicine
DX: K52.9 Noninfective gastroenteritis and colitis, unspecified (principal); J44.9 Chronic obstructive pulmonary disease, unspecified; I10 Essential (primary) hypertension; Z87.891 Personal history of nicotine dependence
CPT/HCPCS: 12345; 71045; 74018; 74177; 80053; 81001; 83690; 85025; 87426; 87804; 96361; 96374; 96375; 99283; 99284; J0131; J7040; Q9967

== ENCOUNTER → 2020-11-23 10:35 | Outpatient (BNVA) | payer OTHER, SELFPAY | PROVIDERS: PCP Nurse Practitioner; Referring Provider Internal Medicine Cardiovascular Disease; Visit Provider Internal Medicine Cardiovascular Disease | DX: Z01.818 Encounter for other preprocedural examination (principal); R07.9 Chest pain, unspecified; R06.02 Shortness of breath; Z20.822 Contact with and (suspected) exposure to COVID-19 | CPT/HCPCS: 80048; 85025; 85610; 87635 ==

== ENCOUNTER 2020-11-29 07:15 | Outpatient (CLI) | payer OTHER, SELFPAY ==
[2020-11-29] VITALS (16 sets, daily range): BP systolic 117–155; BP diastolic 70–106; PULSE 70–92; RESP 15–16; TEMP 36.1–36.7; O2SAT 91–96; BMI 24.9
--- NOTE | 2020-11-29 07:30 | XACV_ITS ---
Ht: 183 cm Wt: 83 kg BSA: 2.07 m2 Gender: Male : 1960 Any Known Allergies: No known allergies Exam Priority: Routine Procedure(s): Procedure Description: Diagnostic procedure Procedure Description: Left Heart Catheterization Procedure Description: Left ventriculography Procedure Description: Coronary Angiography BRIANNAElaine PAGE; Diagnostic Cath Status: Elective Diagnostic Findings * No disease noted in the Left Main, Left Anterior Descending, Right, or Circumflex coronary arteries. * Coronary angiography shows left dominance. Conclusions 1. No disease noted in the Left Main, Left Anterior Descending, Right, or Circumflex coronary arteries. 2. Normal left ventricular systolic function. Ejection fraction of 60%. Recommendations * Continue current medical management and risk factor modification. Ventriculography Ejection Fraction: 60.0 % Pressures Phase:Rest AO : 94 / 68 ( 81 ) @ 8:41:00 AM 95 / 52 ( 67 ) @ 8:47:00 AM 81 / 38 ( 22 ) @ 8:47:00 AM LV : 121 / -11 / 5 @ 8:46:00 AM 132 / -6 / 16 @ 8:47:00 AM Valves Phase:DefaultPhase AV : 27.0 @ 9:53:16 AM 27.0 @ 9:53:16 AM AV Mean Gradient: 20.0 @ 9:53:16 AM 20.0 @ 9:53:16 AM Clinical Evaluation EBL: 5mL-10mL Procedural Details Procedure Consent Obtained. Pre-Procedure Time Out. Identified patient by full name and date of as verbalized by the patient/guarantor. Does the consent match the physician's order: Yes. Accurate & Complete Informed Consent: Yes. Inpatient/Outpatient History & Physical on Chart: Yes. If H&P is completed, is and addenduem needed: No; If yes, is the addendum complete: N/A. Visualize and Verify Site with Patient/Guarantor: N/A. Relevant Radiology Images available: N/A. Pre-op teaching completed and patient verbalized understanding. The risks, benefits, and alternatives of sedation and/or procedure were discussed by physician. The patient agrees to continue. Chica Pepper RN will be circulating this case. Procedure started. [facility] Clinical Fraility Score: 3: Managing Well. 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 Chest Pain Symptom Assessment: Typical Angina Symptoms. Cardiovascular Instability: No. Correct patient, site and procedure confirmed by cath team. PERRLA. Strong, equal hand rail car operator bilaterally. Lungs clear x 5 lobes. IV Site on Arrival: 20 gauge in the right upper arm. IV Fluids: 0.9% NaCl at KVO. 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 Pre Procedural Pulses: bilateral dorsalis pedis was Doppled. Pre Procedural Pulses: bilateral posterior tibial was Doppled. Pre Procedural Pulses: bilateral radial was 3+. Oxygen started at 2liters/min via nasal canula. right groin was prepped with chloroprep then draped in the usual sterile fashion. right radial was prepped with chloroprep then draped in the usual sterile fashion. Baseline sample Acquired. HR: 68 BPM. Physician arrived. Equipment: 6F - Radial. Cardiac Cath Pack. ACIST Manifold Kit Model BT 2000. Heparinized Saline (2 units/mL), 1000 mL bag. Physician scrubbed in. Immediate Pre-Procedure Time Out. Correct Patient: Yes; Correct Procedure: Yes; Correct Site: Yes; Correct Patient Position: Yes; Correct Supplies: Yes; Dried Flammable Prep: Yes; Blood Products Available: N/A;. Lidocaine 1% infiltrated to the right radial. Arterial access obtained. A 5 tajik TIG catheter in over wire. Multiple views taken of left coronary artery. Catheter redirected to the RCA. Multiple views taken of right coronary artery. Catheter removed over the exchange wire. A 5 tajik Angled Pig catheter in over wire. EDP Sample taken: LV 121/-12,5; HR: 81 BPM; SpO2: 96%. LV gram performed in BARGER @ 10 mL/second for a total of 30 mL. EDP Sample taken: LV Off; HR: 0 BPM; SpO2: 96%. Pullback taken: LV 132/-7,16; AO 95/52(67); Mean: 20mmHg, Peak to Peak: 27mmHg, SEP: 21sec/min; HR: 76 BPM; SpO2: 96%. Catheter removed over the exchange wire. Physician scrubbed out. A TR Band was successful obtaining hemostatsis at the Right Radial artery insertion site. TR band placed. Hemostasis obtained. Post Procedure: Pulses reassessed and unchanged. PERRLA. Strong, equal hand rail car operator bilaterally. No VTE prophylaxis required. Medication's Wasted: Lidocaine 1% = 7 mL. Medication's Wasted: Nitro = 49.8 mg. Medication's Wasted: Heparin = 1000 units. Medication's Wasted: Other = versed 1 mg. Medication's Wasted: Other = fentanly 50 mcg. Total IV fluids: 25 mL. Contrast type used: Omnipaque 300 mgI/mL, 500 mL bottle. Complications: none. Estimated blood loss: 5mL-10mL. Procedure completed. Patient transferred by wheelchair to 1st floor. Vital chart was stopped. Access Site Site: Right Radial artery Sheath Size: 6 Fr Hemostasis Method: TR Band Hemostasis Success: Successful Procedure Medications Start: 9:34 AM Stop: 9:34 AM Medication: Versed Amount: 1 mg Route: I.V. Start: 9:34 AM Stop: 9:34 AM Medication: Fentanyl Amount: 50 mcg Route: I.V. Start: 9:36 AM Stop: 9:36 AM Medication: Versed Amount: 1 mg Route: I.V. Start: 9:37 AM Stop: 9:37 AM Medication: Nitrogylcerin Amount: 200 mcg Route: I.A. Start: 9:39 AM Stop: 9:39 AM Medication: Heparin Amount: 5000 units Route: I.V. Start: 9:40 AM Stop: 9:40 AM Medication: Versed Amount: 1 mg Route: I.V. I, the attending physician, have reviewed and verified all procedure medications. Yes, all medications given per verbal order History/Risk Factors Hypertension: Yes Dyslipidemia: No Peripheral Arterial Disease (PAD): No Myocardial Infarction (DE): No Obesity: No Renal Disease: No Tobacco Use: Former Prior Interventions PCI: No CABG: No Valve Surgery: No Report Signatures Finalized by Raysa Henry MD on 12/12/2020 06:15 PM
[2020-11-29] MEDS: diphenhydrAMINE 50 mg Capsule PO (08:26)
[2020-11-29 08:39] LABS: Basophils # 0.1 10^3/uL (0.0-0.1); Basophils % 0.6 %; Eosinophils # 0.1 10^3/uL (0.0-0.8); Eosinophils % 1.5 %; Hematocrit 47.2 % (42.0-52.0); Hemoglobin 16.3 g/dL (11.7-16.6); Lymphocytes # 2.7 10^3/uL (0.8-4.8); Lymphocytes % 27.9 %; Mean Corpuscular HGB Conc 34.5 g/dL (30.0-36.0); Mean Corpuscular Hemoglobin 33.7 pg (28.0-34.0); Mean Corpuscular Volume 97.7 fl (80-94); Mean Platelet Volume 9.1 fL (7.4-10.4); Monocytes # 0.9 10^3/uL (0.2-0.9); Monocytes % 8.8 %; Neutrophils # 5.83 10^3/uL (1.8-7.7); Neutrophils % 60.6 %; Nucleated Red Blood Cells % 0 %; Platelet Count 199 10^3/cmm (130-400); Red Blood Count 4.83 10^6/uL (4.1-5.3); Red Cell Distribution Width 13.8 % (12.1-15.1); White Blood Count 9.6 10^3/uL (4.0-10.0)
--- NOTE | 2020-11-29 09:29 | W.PM.OPSUD ---
Surgery/Procedure H&P Update DATE OF PROCEDURE: November 29, 2020 DATE H&P PERFORMED: 11/10/19 H&P UPDATE INFORMATION: I have reviewed H&P completed within last 30 days, I have examined patient prior to procedure and No changes to prior documentation PREOP DIAGNOSIS: Unstable angina PLANNED PROCEDURE: Operation Date: 11/29/20 08:30 Proposed Procedures p Cardiac Catheterization(Left) - Raysa Henry MD PATIENT REASSESSED PRIOR TO SEDATION, WITH NO CHANGE NOTED: Yes PHYSICAL EXAM: alert, oriented x 3 and clear to auscultation bilaterally AIRWAY EVAL/ANESTHESIA PLAN: ASA II, Risks, benefits & alternatives of sedation and/or procedure discussed and Patient agrees to continue as planned ADDITIONAL INFORMATION: Patient has been explained all risk benefit and alternative for the procedure. Patient understand risk for contrast-induced nephropathy, major minor bleed stroke hematoma vascular injury urgent emergent bypass surgery. He would like to proceed with it. Patient is a candidate for DAPT.
--- NOTE | 2020-11-29 10:00 | PC.NURSE ---
From senior label specialist Received pt from senior label specialist. Alert,orientedx4. Denies any pain. Tr band intact. no hematoma, swelling or bleeding. Radial pulse is palpable. Oriented pt to staff and call light provided. Activity restrictions post angiogram discuss to pt. vs monitored.
[2020-11-29] MEDS: sodium chloride 0.9% 1,000 ML 100 ML IV (10:15)
--- NOTE | 2020-11-29 10:15 | PC.NURSE ---
Notified Asked Dr. Henry if we need to infuse fluids post angiogram. Received verbal order readback to infuse 100 ml/hr of NS for 3 hrs then stopped.
--- NOTE | 2020-11-29 13:30 | PC.NURSE ---
Discharge Note Patient discharged to home via wheelchair accompanied by Julia. Discharge instructions reviewed with patient and/or field support representative such as post angiogram home care instructions like wound care, activity restrictions and what to do when there is bleeding and s/s of infection. Pt verbalizes understanding. Mobile pharmacy medications and/or prescriptions provided. Belongings/home medications returned.
--- NOTE | 2020-11-30 11:25 | PC.SOCIAL ---
discharge follow up call made, spoke with patients . she reports pt is gone at this time, picking up new medication from the pharmacy. per patient is aware of the medication change on isosorbide from 15 mg bid to 30 mg daily. is aware of follow up appointment with dr. vega. reports patient feels good, just tired but isn't having any chest pain or shortness of breath. she reports incision looks good.
== END 2020-11-29 13:30 | disposition home or self-care (01) ==
LOC: CCL 07:17 → CSU 11:55
PROVIDERS: PCP Nurse Practitioner; Visit Provider Internal Medicine Cardiovascular Disease
DX: R07.9 Chest pain, unspecified (principal); R06.02 Shortness of breath; I10 Essential (primary) hypertension; J44.9 Chronic obstructive pulmonary disease, unspecified; K21.9 Gastro-esophageal reflux disease without esophagitis; Z86.010 Personal history of colon polyps; Z82.3 Family history of stroke; F17.210 Nicotine dependence, cigarettes, uncomplicated
CPT/HCPCS: 85025; 93452; 93458; C1769; C1887; C1894; G0378; J1644; J2250; J3010; J3490; J7030; Q0163; Q9967

== ENCOUNTER 2020-12-10 09:33 | Outpatient (CLI) | payer OTHER, SELFPAY ==
--- NOTE | 2020-12-10 09:30 | USCV_ITS ---
Marques Jones Age: 60 Gender: M : 1960 Exam Date: 12/10/2020 09:48 Ordering Phys: Raysa Henry MD ([email or web address]) Technologist: Cluadine Apple Exam Location: [facility] [place] Indication: SOB AND CHEST PAIN BP: 137 / 73 HR: 65 Rhythm: Sinus Technical Quality: Adequate MEASUREMENTS (Male / Female) Normal Values 2D ECHO LV Diastolic Diameter PLAX 4.1 cm 4.2 - 5.9 / 3.9 - 5.3 cm LV Systolic Diameter PLAX 3.1 cm LV Chamber Size 2.5 cm IVS Diastolic Thickness 1.1 cm 0.6 - 1.0 / 0.6 - 0.9 cm IVS Systolic Thickness 1.4 cm LVPW Diastolic Thickness 1.2 cm 0.6 - 1.0 / 0.6 - 0.9 cm LVPW Systolic Thickness 1.4 cm RV Chamber Size 3.8 cm LVOT Diameter 2.0 cm LV Ejection Fraction 2D Teich 51.1 % LV Ejection Fraction MOD 2C 63.2 % LV Ejection Fraction 2C AL 65.3 % LA Diameter 3.3 cm LA Width 2.1 cm LA Height 3.5 cm RA Width 2.8 cm RA Height 4.5 cm Aorta at Sinotubular Diameter 3.1 cm M-MODE LV Diastolic Diameter MM 3.6 cm 4.2 - 5.9 / 3.9 - 5.3 cm LV Systolic Diameter MM 3.1 cm LV Ejection Fraction MM Teich 30.7 % IVS Diastolic Thickness MM 1.3 cm 0.6 - 1.0 / 0.6 - 0.9 cm IVS Systolic Thickness MM 1.4 cm LVPW Diastolic Thickness MM 1.1 cm 0.6 - 1.0 / 0.6 - 0.9 cm LVPW Systolic Thickness MM 1.3 cm RV Diastolic Diameter MM 2.8 cm Aortic Annulus Diameter 3.5 cm LA Ao Ratio MM 1.0 MV E Point Septal Separation 0.7 cm DOPPLER AV Peak Velocity 139.5 cm/s LVOT Peak Velocity 80.0 cm/s AV Area Cont Eq vti 1.9 cm squared AV Area Cont Eq pk 1.9 cm squared MV Area PHT 1.9 cm squared Mitral E to A Ratio 1.1 MV E' Velocity 30.5 cm/s Mitral E to MV E' Ratio 6.4 Mitral E to LV E' Lateral Ratio 5.6 Mitral E to LV E' Septal Ratio 7.5 TR Peak Velocity 186.0 cm/s TR Peak Gradient 13.8 mmHg TR Mean Velocity 121.5 cm/s TR Mean Gradient 7.2 mmHg TR Velocity Time Integral 38.2 cm TV Peak E Velocity 70.0 cm/s Right Atrial Pressure 3.0 mmHg Pulmonary Artery Systolic Pressu 16.8 mmHg PV Peak Velocity 76.0 cm/s RV Acceleration Time 0.1 s RV Ejection Time 0.3 s RV AcT/ET 0.5 FINDINGS Left Ventricle Normal left ventricular cavity size. Normal left ventricular systolic function. No regional wall motion abnormalities. Left ventricular ejection fraction is estimated at 55 %. Grade I/IV diastolic dysfunction (abnormal relaxation filling pattern), normal to mildly elevated filling pressures. Right Ventricle The right ventricle is normal in size and function. Right Atrium The right atrium is normal in size. Left Atrium The left atrium is normal in size. Mitral Valve Structurally normal mitral valve without significant stenosis or prolapse. There is no mitral regurgitation. Aortic Valve Structurally normal aortic valve without significant sclerosis or stenosis. There is no aortic regurgitation. Tricuspid Valve Structurally normal tricuspid valve without significant stenosis or regurgitation. Pulmonary artery systolic pressure is normal. Pulmonic Valve Structurally normal pulmonic valve without significant stenosis. There is no pulmonic regurgitation. Pericardium Normal pericardium without effusion. Aorta Normal ascending aorta dimension. CONCLUSIONS 1-Normal left ventricular cavity size. Normal left ventricular systolic function. No regional wall motion abnormalities. Left ventricular ejection fraction is estimated at 55 %. Grade I/IV diastolic dysfunction (abnormal relaxation filling pattern), normal to mildly elevated filling pressures. 2-There is no pericardial effusion. 3-No significant chamber abnormalities. 4-Pulmonary artery systolic pressure is within normal limits. 5-Right atrial pressure is around 5 mm of mercury. 6-There are no prior echocardiogram studies to compare. Raysa Henry MD (Electronically Signed) Final Date: 13 December 2020 20:39 S
== END 2020-12-10 09:34 | disposition home or self-care (01) ==
LOC: RAD 09:36
PROVIDERS: PCP Nurse Practitioner; Visit Provider Internal Medicine Cardiovascular Disease
DX: R06.02 Shortness of breath (principal); R07.9 Chest pain, unspecified
CPT/HCPCS: 93306

== ENCOUNTER → 2022-05-15 09:59 | Outpatient (BNVA) | payer OTHER, SELFPAY | PROVIDERS: PCP Nurse Practitioner; Visit Provider Podiatrist Foot & Ankle Surgery | DX: M20.22 Hallux rigidus, left foot (principal) | CPT/HCPCS: 73630; 99203 ==

== ENCOUNTER 2022-06-26 11:11 | Emergency (ER) | payer OTHER, SELFPAY ==
[2022-06-26 11:21] VITALS: BP 167/95; PULSE 59; RESP 18; TEMP 36.4; O2SAT 97
--- NOTE | 2022-06-26 11:50 | ED_ITS ---
HPI - Nausea/Vomiting/Diarrhea General: Chief complaint: Nausea/Vomiting/Diarrhea Stated complaint: HIGH BP, [facility] Time Seen by Provider: 06/26/22 11:26 History of Present Illness: [facility] left-sided headache and nausea vomiting x1 week. Patient states he normally does not get headaches. Patient is on 4 blood pressure medicines per him but does not check his blood pressure very often. Patient's blood pressure has been always up to 196/86. Patient midst to having a history of drinking 1/5 of alcohol a day. But states he stopped in February of this year. MD elicited complaint: nausea and vomiting Pertinent past history: pacreatitis Onset (ago): week(s) (1 week ago) Description of vomiting: watery Description of diarrhea: watery Associated nausea: Yes Associated abdominal pain: No Location of pain: Other (Left-sided. Orbital and retro-orbital) Pain consistency: constant (Waxing and waning) Severity: moderate Exacerbating factors: none Relieving factors: none Associated symtoms: Reports headache(s) and nausea; Denies change in vision, chest pain, dysuria or palpitations Review of Systems General: Reports: 10 or more systems reviewed and unremarkable except in HPI and below Const: Denies: fever(s) or chills Eyes: Denies: change in vision ENMT: Denies: throat pain or enlarged tonsils Card: Denies: chest pain or palpitations Resp: Denies: dyspnea, productive cough or non-productive cough GI: Reports: nausea and vomiting; Denies: abdominal pain : Denies: flank pain, difficulty urinating or dysuria Musc: Denies: neck pain or back pain Skin/Breast: Denies: rash or pruritus Neuro: Reports: headache(s) PFS ED PFSH: Medical History COPD (chronic obstructive pulmonary disease) GERD (gastroesophageal reflux disease) History of colon polyps Hypertension Postprandial diarrhea Shortness of breath Tobacco abuse Surgical History H/O esophagogastroduodenoscopy (11/27/19) hiatal hernia, gastritis History of appendectomy History of back surgery History of hand surgery Hx of inguinal hernia surgery Status post colonoscopy Status post laparoscopic cholecystectomy (01/14/20) Family History Father Cancer Stroke Grandfather Cancer Social History Smoking and tobacco status: former smoker Alcohol intake: current Alcohol intake frequency: 0-2 Drinks per Day Substance/Drug Use: current Substance/Drug use frequency: Special occassions/opportunity only Other substance/drug use details: THC Gummy Bears for appetite Physical Exam Const: COMMON NORMALS: no acute distress, average body habitus, patient oriented x3, no limitations, healthy appearing, alert and well nourished HENMT: COMMON NORMALS: normocephalic, atraumatic, hearing grossly normal bilaterally, external ears normal, Normal external nose present and moist oral mucous membranes HEAD & SCALP: normocephalic and atraumatic NOSE: Normal external nose present EXTERNAL EAR: Yes external ears normal Eye: COMMON NORMALS: Equal, round and reactive pupils present, EOMs intact bilaterally, conjunctivae normal and no scleral icterus CONJUNCTIVA: Yes conjunctivae normal PUPIL: Yes Equal, round and reactive pupils present Neck/C-Spine: COMMON NORMALS: full ROM, no lymphadenopathy, supple, no meningeal signs, no JVD and Thyroid normal THYROID: Thyroid normal Lymph: LYMPHATIC: no lymphadenopathy noted Chest: COMMONS NORMALS: normal inspection of the chest and normal palpation of entire chest wall Resp: COMMON NORMALS: normal respiratory effort, No retractions, No use of accessory muscles and clear to auscultation bilaterally AUSCULTATION: clear to auscultation bilaterally Cardio: COMMON NORMALS: no JVD, regular rate, regular rhythm, S1 normal heart sound present, S2 normal heart sound present, No gallops present (Cardio), No clicks present (Cardio), No murmurs present (Cardio) and No rub (Cardio) RATE: regular rate RHYTHM: regular rhythm HEART SOUNDS: S1 normal heart sound present and S2 normal heart sound present GI: COMMON NORMALS: Normal to inspection, nondistended, normoactive bowel sounds present, Soft to palpation, non-tender, No hepatosplenomegaly present and no masses PALPATION: Yes Soft to palpation and Yes No hepatosplenomegaly present : COMMON NORMALS: Yes no CVA tenderness BLADDER/KIDNEY EXAM: Yes no CVA tenderness Back/Pelvis: COMMON NORMALS: no CVA tenderness Neuro: COMMON NORMALS: patient oriented x3, CN's II-XII intact bilaterally, moves all extremities, no focal motor deficits and no sensory deficits noted SENSORIUM/ORIENTATION: Yes alert MENINGEAL SIGNS: Yes no meningeal signs Psych: COMMON NORMALS: mental status grossly normal, Normal thought process present, cooperative, normal affect and speech normal SPEECH: Yes normal speech THOUGHT PROCESS: Normal thought process present Course Vital Signs: Vital signs: Vital Signs Temperature 97.6 F 06/26/22 11:21 Pulse Rate 59 L 06/26/22 11:21 Respiratory Rate 18 06/26/22 11:21 Blood Pressure 167/95 06/26/22 11:21 Pulse Oximetry 97 06/26/22 11:21 Oxygen Delivery Me thod Room Air 06/26/22 11:21 MDM - Nausea/Vomiting/Diarrhea Medical Decision Making Patient presents to the ER with complaints of headache nausea vomiting and high blood pressure for the last week. Patient is currently on 4 medicines for blood pressure. Patient does not check his blood pressure at home very often. [facility] We obtain lab work that included blood work urine and head CT and EKG on patient. These findings were essentially benign. Patient will be discharged home to follow [facility] in the next week. Patient was also given a liter of normal saline and Imitrex. Differential Diagnosis Unlikely traveler's diarrhea, food poisoning, gastroenteritis, clostridium difficile infection, drug-induced nausea and vomiting or dehydration Medical Records I reviewed the patient's medical records. Lab Data I reviewed the patient's lab results. 06/26/22 12:22 06/26/22 13:[address] 06/26/22 11:51 IMPRESSION: 1. No acute intracranial hemorrhage or edema. 2. Very mild atrophy and small vessel ischemic disease. Laboratory Results WBC 7.7 10^3/uL (4.0-10.0) 06/26/22 12:22 RBC 4.44 10^6/uL (4.1-5.3) 06/26/22 12:22 Hgb 13.5 g/dL (11.7-16.6) 06/26/22 12:22 Hct 41.6 % (42.0-52.0) L 06/26/22 12:22 MCV 93.7 fl (80-94) 06/26/22 12:22 MCH 30.4 pg (28.0-34.0) 06/26/22 12:22 MCHC 32.5 g/dL (30.0-36.0) 06/26/22 12:22 RDW 12.3 % (12.1-15.1) 06/26/22 12:22 Plt Count 106 10^3/cmm (130-400) L 06/26/22 12:22 MPV 9.4 fL (7.4-10.4) 06/26/22 12:22 Neut % (Auto) 62.0 % 06/26/22 12:22 Lymph % (Auto) 27.6 % 06/26/22 12:22 [place] % (Auto) 7.6 % 06/26/22 12:22 Eos % (Auto) 1.8 % 06/26/22 12:22 Baso % (Auto) 0.6 % 06/26/22 12:22 Neut # (Auto) 4.79 10^3/uL (1.8-7.7) 06/26/22 12:22 Lymph # (Auto) 2.1 10^3/uL (0.8-4.8) 06/26/22 12:22 [place] # (Auto) 0.6 10^3/uL (0.2-0.9) 06/26/22 12:22 Eos # (Auto) 0.1 10^3/uL (0.0-0.8) 06/26/22 12:22 Baso # (Auto) 0.1 10^3/uL (0.0-0.1) 06/26/22 12:22 Nucleated RBC % (auto) 0 % 06/26/22 12:22 Nucleated RBCs # 0.0 /100WBC 06/26/22 12:22 Sodium 138 mmol/L (136-145) 06/26/22 13:10 Potassium 4.4 mmol/L (3.5-5.1) 06/26/22 13:10 Chloride 104 mmol/L (98-107) 06/26/22 13:10 Carbon Dioxide 21 mmol/L (22-29) L 06/26/22 13:10 Anion Gap 17.4 (5-19) 06/26/22 13:10 BUN 14 mg/dL (8-23) 06/26/22 13:10 Creatinine 1.0 mg/dL (0.7-1.2) 06/26/22 13:10 GFR Calculation 75.2 mL/min (90-130) L 06/26/22 13:10 Glucose 93 mg/dL (65-115) 06/26/22 13:10 Calculated Osmolality 286 mOsm/kg (285-295) 06/26/22 13:10 Calcium 9.3 mg/dL (8.5-10.5) 06/26/22 13:10 Magnesium 1.7 mg/dL (1.7-2.3) 06/26/22 13:10 Total Bilirubin 0.6 mg/dL (0.15-1.2) 06/26/22 13:10 AST 24 U/L (0-40) 06/26/22 13:10 ALT 16 U/L (0-41) 06/26/22 13:10 Alkaline Phosphatase 135 U/L (40-130) H 06/26/22 13:10 Total Protein 7.8 g/dL (6.6-8.7) 06/26/22 13:10 Albumin 4.2 g/dL (3.5-5.2) 06/26/22 13:10 Globulin 3.6 g/dL (1.3-4.6) 06/26/22 13:10 Lipase 22 U/L (13-60) 06/26/22 13:10 Urine Color Yellow (Yellow) 06/26/22 15:26 Urine Appearance Clear (CLEAR) 06/26/22 15:26 Urine pH 7 (5-7) 06/26/22 15:26 Ur Specific [place] 1.005 (1.005-1.030) 06/26/22 15:26 Urine Protein Neg (Negative) 06/26/22 15:26 Urine Glucose (UA) Norm (Normal) 06/26/22 15:26 Urine Ketones Negative (Negative) 06/26/22 15:26 Urine Blood Neg (Negative) 06/26/22 15:26 Urine Nitrate Negative (Negative) 06/26/22 15:26 Urine Bilirubin Neg (Negative) 06/26/22 15:26 Urine Urobilinogen Norm mg/dL (Negative) 06/26/22 15:26 Ur Leukocyte Esterase Negative (Negative) 06/26/22 15:26 EKG Data EKG 1: I personally reviewed and interpreted this EKG as follows: EKG interpretation date: 06/26/22 EKG interpretation time: 11:56 Prior EKG tracings: not available for review Interpretation: EKG showed normal sinus bradycardia with ventricular rate of 57 bpm, OH interval 192, QRS duration of 90, QTc of 409, no ST-T wave changes Discharge Plan Discharge Patient Disposition: Home Clinical Impression: Headache Qualifiers: Headache type: unspecified Headache chronicity pattern: acute headache Intractability: not intractable Qualified Code(s): R51.9 - Headache, unspecified Nausea & vomiting Qualifiers: Vomiting type: unspecified Qualified Code(s): R11.2 - Nausea with vomiting, unspecified Hypertension Qualifiers: Hypertension type: primary hypertension Qualified Code(s): I10 - Essential (primary) hypertension Condition: Stable Prescriptions: No Action budesonide-formoterol [Symbicort] 160-4.5 mcg/actuation HFA aerosol inhaler 2 puff INHALATION BID PRN (Reason: Shortness Of Breath) albuterol sulfate 1.25 mg/3 mL solution for nebulization 1.25 mg INHALATION QID PRN (Reason: Dyspnea) albuterol sulfate 90 mcg/actuation aerosol powdr breath activated 2 inh INHALATION Q6H PRN (Reason: Dyspnea) omeprazole 40 mg capsule,delayed release(DR/EC) 40 mg PO BID metoprolol tartrate 25 mg tablet 12.5 mg PO BID Qty: 90 3RF nitroglycerin [Nitrostat] 0.4 mg tablet, sublingual 0.4 mg sublingual Q5M PRN (Reason: chest pain) Qty: 25 3RF Rx Instructions: do not exceed 3 doses per episode (DME) Co-poly full length CUSTOM insoles with metatarsal pads See Rx Instructions .Route .MEDSUPPLY Qty: 1 0RF Rx Instructions: As directed by ADWOA&O valsartan-hydrochlorothiazide 160-12.5 mg tablet 1 tab PO DAILY Qty: 30 6RF montelukast [Singulair] 4 mg Granules In Packet 10 mg PO DAILY@07 loperamide 2 mg Capsule 2 mg PO DAILY PRN (Reason: Diarrhea) trazodone 50 mg Tablet 25 mg PO BEDTIME vitamin B complex Capsule 1 cap PO DAILY isosorbide mononitrate 30 mg tablet extended release 24 hr 30 mg PO DAILY Qty: 30 3RF cyclobenzaprine 10 mg tablet 10 mg PO Q8H PRN (Reason: Muscle Pain) Discharge Orders: Discharge ED (Routine); Ordered 06/26/22 Ordered By: Carlos Olmedo Referrals: Kika Estes FNP [Primary Care Provider] - 1 week Patient Instructions: Acute Headache (DC), Acute Nausea and Vomiting (DC), Chronic Hypertension (ED) Coding Level of Care Code ED Community Marketing Coordinator for Lou Fontana
--- NOTE | 2022-06-26 11:51 | CT_ITS ---
WS: [id number] CT HEAD NONCONTRAST HISTORY: left sided headache, htn TECHNIQUE: Contiguous axial imaging performed through the brain in 2.5 mm imaging. Bone and soft tiss ue windows. Sagittal and coronal reformats reviewed. All CT scans at [facility] use at least one of these dose optimization techniques: automated exposure control; mA and/or kV adjustment per pa tient size (includes targeted exams where dose is matched to clinical indication); or iterative recon struction. DLP: 1096.29 mGy.cm COMPARISON: None available. No acute intracranial hemorrhage, midline shift or mass effect. Mild atrophy and small vessel ischemic disease. No prior infarcts. Ventricles: Normal size with no hydrocephalus. Paranasal sinuses: As visualized are clear. Mastoid air cells: Well pneumatized. Calvarium and scalp: Skull is intact with no soft tissue edema or swelling. CT/CT head wo con* [id number] IMPRESSION: 1. No acute intracranial hemorrhage or edema. 2. Very mild atrophy and small vessel ischemic disease.
--- NOTE | 2022-06-26 11:56 | ECG_ITS ---
[facility] Test Date: 2022-06-26 Pat Name: Marques Jones Department: Room: Gender: Male [employer]: : 1960 Requested By: Carlos Olmedo Order Number: [id number] Vanessa MD: Garry Sam M.D. Measurements Intervals [place] Rate: 57 P: 44 OR: 192 QRS: 25 QRSD: 90 T: 39 QT: 434 QTc: 426 Interpretive Statements SINUS BRADYCARDIA Compared to ECG 07/25/2019 10:21:10 Sinus rhythm no longer present Electronically Signed On 06-27-2022 7:03:05 CDT by Garry Sam M.D. [id number]
[2022-06-26 12:34] LABS: Basophils # 0.1 10^3/uL (0.0-0.1); Basophils % 0.6 %; Eosinophils # 0.1 10^3/uL (0.0-0.8); Eosinophils % 1.8 %; Hematocrit 41.6 % (42.0-52.0); Hemoglobin 13.5 g/dL (11.7-16.6); Lymphocytes # 2.1 10^3/uL (0.8-4.8); Lymphocytes % 27.6 %; Mean Corpuscular HGB Conc 32.5 g/dL (30.0-36.0); Mean Corpuscular Hemoglobin 30.4 pg (28.0-34.0); Mean Corpuscular Volume 93.7 fl (80-94); Mean Platelet Volume 9.4 fL (7.4-10.4); Monocytes # 0.6 10^3/uL (0.2-0.9); Monocytes % 7.6 %; Neutrophils # 4.79 10^3/uL (1.8-7.7); Nucleated Red Blood Cells % 0 %; Platelet Count 106 10^3/cmm (130-400); Red Blood Count 4.44 10^6/uL (4.1-5.3); Red Cell Distribution Width 12.3 % (12.1-15.1); White Blood Count 7.7 10^3/uL (4.0-10.0)
[2022-06-26] MEDS: SUMAtriptan 6 mg/0.5 mL SDV SUBCUT (13:25)
[2022-06-26] MEDS: ondansetron 2 mg/ML SDV 2 mL 4 MG IVP (13:25)
[2022-06-26] MEDS: sodium chloride 0.9% 1,000 ML 999 ML IV (13:26)
[2022-06-26 13:28] VITALS: BP 143/69
[2022-06-26 13:30] VITALS: BP 143/69
[2022-06-26 14:13] LABS: Alanine Aminotransferase 16 U/L (0-41); Albumin Level 4.2 g/dL (3.5-5.2); Alkaline Phosphatase 135 U/L (40-130); Aspartate Amino Transferase 24 U/L (0-40); Blood Urea Nitrogen 14 mg/dL (8-23); Calcium 9.3 mg/dL (8.5-10.5); Carbon Dioxide 21 mmol/L (22-29); Chloride 104 mmol/L (98-107); Globulin 3.6 g/dL (1.3-4.6); Glomerular Filtration Rate 75.2 mL/min (90-130); Glucose 93 mg/dL (65-115); Lipase 22 U/L (13-60); Magnesium 1.7 mg/dL (1.7-2.3); Osmolality Calculated 286 mOsm/kg (285-295); Sodium 138 mmol/L (136-145); Total Bilirubin 0.6 mg/dL (0.15-1.2); Total Protein 7.8 g/dL (6.6-8.7)
[2022-06-26 14:14] LABS: Anion Gap 17.4 (5-19); Potassium 4.4 mmol/L (3.5-5.1)
[2022-06-26 15:44] LABS: Add Urine Microscopic? NO; Charge for UA Resulting for Rev
[2022-06-26 15:51] LABS: Bilirubin Urine Neg (Negative); Blood Urine Neg (Negative); Glucose Urine UA Norm (Normal); Ketones Urine Negative (Negative); Leukocyte Esterase Urine Negative (Negative); Nitrate Urine Negative (Negative); Protein Urine Neg (Negative); Specific Gravity, Urine 1.005 (1.005-1.030); Urine Appearance Clear (CLEAR); Urine Color Yellow (Yellow); Urobilinogen Urine Norm (Negative); pH Urine 7 (5-7)
[2022-06-26 16:02] VITALS: O2SAT 96
== END 2022-06-26 16:30 | disposition home or self-care (01) ==
PROVIDERS: Emergency Provider Emergency Medicine; PCP Nurse Practitioner
DX: R51.9 Headache, unspecified (principal); R11.2 Nausea with vomiting, unspecified; I10 Essential (primary) hypertension; Z87.891 Personal history of nicotine dependence; J44.9 Chronic obstructive pulmonary disease, unspecified
CPT/HCPCS: 36415; 70450; 80053; 81003; 83690; 83735; 85025; 93005; 96372; 96374; 99285; J2405; J3030; J7030

== ENCOUNTER 2022-11-27 10:11 | Emergency (ER) | payer OTHER, SELFPAY ==
[2022-11-27 10:22] VITALS: BP 145/78; PULSE 58; RESP 16; TEMP 36.6; O2SAT 96; BMI 3397.8
[2022-11-27 10:50] LABS: Basophils # 0.1 10^3/uL (0.0-0.1); Basophils % 0.6 %; Eosinophils # 0.1 10^3/uL (0.0-0.8); Lymphocytes # 2.3 10^3/uL (0.8-4.8); Lymphocytes % 27.3 %; Mean Corpuscular Hemoglobin 30.8 pg (27-33); Mean Corpuscular Volume 93.3 fl (82-101); Monocytes # 0.5 10^3/uL (0.2-0.9); Monocytes % 6.4 %; Neutrophils # 5.38 10^3/uL (1.8-7.7); Neutrophils % 64.5 %; Nucleated Red Blood Cells % 0 %; Platelet Count 156 10^3/cmm (157-399); Red Blood Count 5.04 10^6/uL (3.85-5.65); Red Cell Distribution Width 12.9 % (12.1-15.1); White Blood Count 8.34 10^3/uL (3.29-11.43)
--- NOTE | 2022-11-27 11:00 | PC.PHAR ---
faxed [place] for med list
[2022-11-27 11:03] VITALS: BP 148/80; PULSE 59; RESP 16; O2SAT 96; O2SAT 97
[2022-11-27 11:07] LABS: Alanine Aminotransferase 20 U/L (0-41); Albumin Level 4.7 g/dL (3.5-5.2); Alkaline Phosphatase 134 U/L (40-130); Aspartate Amino Transferase 24 U/L (0-40); Blood Urea Nitrogen 21 mg/dL (8-23); Calcium 9.4 mg/dL (8.5-10.5); Carbon Dioxide 18 mmol/L (22-29); Chloride 105 mmol/L (98-107); Globulin 3.4 g/dL (1.3-4.6); Glomerular Filtration Rate 67.4 mL/min (90-130); Glucose 98 mg/dL (65-115); Lipase 17 U/L (13-60); Osmolality Calculated 285 mOsm/kg (285-295); Sodium 136 mmol/L (136-145); Total Bilirubin 0.9 mg/dL (0.15-1.2); Total Protein 8.1 g/dL (6.6-8.7)
--- NOTE | 2022-11-27 11:07 | ED_ITS ---
HPI - Abdominal Pain General: Chief Complaint: Abdominal Pain Stated Complaint: [facility] Time Seen by Provider: 11/27/22 10:41 Source: patient Mode of arrival: ambulatory Limitations: no limitations History of Present Illness: Patient is a nice 62-year-old male who presents to ED today with complaint of right-sided abdominal pain. He states he began noticing some mild discomfort about a week or so ago. He states he does have a history of pancreatitis so initially attributed symptoms to this. He states he started a liquid diet in hopes of treating it at home but states over the past few days pain has significantly worsened and he has now noticed nausea, dry heaving, and diarrhea. He does state he has fairly chronic diarrhea. He has not been running fevers. No urinary symptoms or flank pain. Previous abdominal surgeries include an appendectomy and cholecystectomy. MD elicited complaint: abdominal pain Pertinent past history: other (pancreatitis) Onset (ago): day(s) Pain Consistency: constant Location: LUQ and LLQ Severity: moderate Radiation: none Migration to: no migration Exacerbating factors: nothing Relieving factors: nothing Associated Symptoms: Reports diarrhea, nausea and vomiting (dry heaving); Denies chills, dysuria, fever(s), heartburn, hematemesis and syncope Review of Systems Const: Denies: fever(s) or chills Eyes: Denies: change in vision or blurry vision Card: Denies: chest pain, palpitations, irregular heart rhythm, lightheadedness, syncope or dyspnea on exertion Resp: Denies: dyspnea, productive cough or pain on inspiration GI: Reports: abdominal pain, nausea, vomiting (dry heaving) and diarrhea; Denies: hematemesis or heartburn : Denies: flank pain, difficulty urinating, dysuria, urinary urgency or uri nary hesitancy Musc: Denies: neck pain, back pain or joint pain Skin/Breast: Denies: rash Neuro: Denies: headache(s), numbness in extremities, weakness in extremities, sensory changes or dizziness PFS ED PFSH: Medical History COPD (chronic obstructive pulmonary disease) GERD (gastroesophageal reflux disease) History of colon polyps Hypertension Postprandial diarrhea Shortness of breath Tobacco abuse Surgical History H/O esophagogastroduodenoscopy (11/27/19) hiatal hernia, gastritis History of appendectomy History of back surgery History of hand surgery Hx of inguinal hernia surgery Status post colonoscopy Status post laparoscopic cholecystectomy (01/14/20) Family History Father Cancer Stroke Grandfather Cancer Social History Smoking and tobacco status: former smoker Alcohol intake: current Alcohol intake frequency: 0-2 Drinks per Day Substance/Drug Use: current Substance/Drug use frequency: Special occassions/opportunity only Other substance/drug use details: THC Gummy Bears for appetite Physical Exam Const: COMMON NORMALS: no acute distress, average body habitus, patient oriented x3, no limitations, healthy appearing, alert and well nourished HENMT: COMMON NORMALS: normocephalic and atraumatic HEAD & SCALP: normocephalic and atraumatic Neck/C-Spine: COMMON NORMALS: full ROM, no lymphadenopathy, supple and no meningeal signs Chest: COMMONS NORMALS: normal inspection of the chest Resp: COMMON NORMALS: normal respiratory effort and clear to auscultation bilaterally AUSCULTATION: clear to auscultation bilaterally Cardio: COMMON NORMALS: regular rate and regular rhythm RATE: regular rate RHYTHM: regular rhythm GI: COMMON NORMALS: Normal to inspection, nondistended, normoactive bowel sounds present, Soft to palpation, No hepatosplenomegaly present and no masses INSPECTION: Yes normal to inspection AUSCULTATION: Yes normoactive bowel sounds PALPATION: Yes Soft to palpation, Yes Tenderness to palpation present (GI) (throughout L abdomen), Yes Guarding due to palpation present (GI), No Rig id due to palpation and Yes No hepatosplenomegaly present : COMMON NORMALS: Yes no CVA tenderness BLADDER/KIDNEY EXAM: Yes no CVA tenderness Back/Pelvis: COMMON NORMALS: no CVA tenderness and thoracic and lumbar spine normal to inspection Extremity: COMMON NORMALS: normal to inspection Neuro: COMMON NORMALS: patient oriented x3 SENSORIUM/ORIENTATION: Yes alert MENINGEAL SIGNS: Yes no meningeal signs Skin: COMMON NORMALS: no rashes or lesions noted GENERAL SKIN EXAM: no rashes or lesions noted Course Vital Signs: Vital signs: Vital Signs Temperature 97.9 F 11/27/22 10:22 Pulse Rate 61 11/27/22 11:30 Respiratory Rate 18 11/27/22 11:41 Blood Pressure 149/65 11/27/22 11:30 Pulse Oximetry 96 11/27/22 11:41 Oxygen Delivery Me thod Room Air 11/27/22 11:03 MDM - Abdominal Pain Medical Decision Making Patient's vital signs are stable. Blood work is unremarkable. His lipase is normal. CT imaging showing a moderate esophageal hernia progressed when compared to 2019. He has an unchanged fat-containing left inguinal hernia. No other abnormal findings noted. Patient is relieved to hear this is not pancreatitis. He states he would like to go home at this time. He later tells me that he has had issues with intermittent exacerbations of abdominal pain that has been worked up several times with no known etiology. I think his esophageal hernia may be starting to cause symptoms of nausea and dry heaving. [facility] about [facility]. Return to ED precautions given. Lab Data 11/27/22 10:40 11/27/22 10:40 Labs/Radiology: Laboratory Results WBC 8.34 10^3/uL (3.29-11.43) 11/27/22 10:40 RBC 5.04 10^6/uL (3.85-5.65) 11/27/22 10:40 Hgb 15.50 g/dL (11.27-16.99) 11/27/22 10:40 Hct 47.0 % (37-53) 11/27/22 10:40 MCV 93.3 fl (82-101) 11/27/22 10:40 MCH 30.8 pg (27-33) 11/27/22 10:40 MCHC 33.0 g/dL (30-55) 11/27/22 10:40 RDW 12.9 % (12.1-15.1) 11/27/22 10:40 Plt Count 156 10^3/cmm (157-399) L 11/27/22 10:40 MPV 9.0 fL (7.4-10.4) 11/27/22 10:40 Neut % (Auto) 64.5 % 11/27/22 10:40 Lymph % (Auto) 27.3 % 11/27/22 10:40 [place] % (Auto) 6.4 % 11/27/22 10:40 Eos % (Auto) 1.0 % 11/27/22 10:40 Baso % (Auto) 0.6 % 11/27/22 10:40 Neut # (Auto) 5.38 10^3/uL (1.8-7.7) 11/27/22 10:40 Lymph # (Auto) 2.3 10^3/uL (0.8-4.8) 11/27/22 10:40 [place] # (Auto) 0.5 10^3/uL (0.2-0.9) 11/27/22 10:40 Eos # (Auto) 0.1 10^3/uL (0.0-0.8) 11/27/22 10:40 Baso # (Auto) 0.1 10^3/uL (0.0-0.1) 11/27/22 10:40 Nucleated RBC % (auto) 0 % 11/27/22 10:40 Nucleated RBCs # 0.0 /100WBC 11/27/22 10:40 Sodium 136 mmol/L (136-145) 11/27/22 10:40 Potassium 4.7 mmol/L (3.5-5.1) 11/27/22 10:40 Chloride 105 mmol/L (98-107) 11/27/22 10:40 Carbon Dioxide 18 mmol/L (22-29) L 11/27/22 10:40 Anion Gap 17.7 (5-19) 11/27/22 10:40 BUN 21 mg/dL (8-23) 11/27/22 10:40 Creatinine 1.1 mg/dL (0.7-1.2) 11/27/22 10:40 GFR Calculation 67.4 mL/min (90-130) L 11/27/22 10:40 Glucose 98 mg/dL (65-115) 11/27/22 10:40 Calculated Osmolality 285 mOsm/kg (285-295) 11/27/22 10:40 Calcium 9.4 mg/dL (8.5-10.5) 11/27/22 10:40 Total Bilirubin 0.9 mg/dL (0.15-1.2) 11/27/22 10:40 AST 24 U/L (0-40) 11/27/22 10:40 ALT 20 U/L (0-41) 11/27/22 10:40 Alkaline Phosphatase 134 U/L (40-130) H 11/27/22 10:40 Total Protein 8.1 g/dL (6.6-8.7) 11/27/22 10:40 Albumin 4.7 g/dL (3.5-5.2) 11/27/22 10:40 Globulin 3.4 g/dL (1.3-4.6) 11/27/22 10:40 Lipase 17 U/L (13-60) 11/27/22 10:40 All radiology interpretation(s) finalized by discharge Discharge Plan Discharge Patient Disposition: Home Clinical Impression: Esophageal hiatal hernia Abdominal pain Qualifiers: Abdominal location: left upper quadrant Qualified Code(s): R10.12 - Left upper quadrant pain Condition: Stable Prescriptions: No Action albuterol sulfate 1.25 mg/3 mL solution for nebulization 1.25 mg INHALATION QID PRN (Reason: Dyspnea) albuterol sulfate 90 mcg/actuation aerosol powdr breath activated 2 inh INHALATION Q6H PRN (Reason: Dyspnea) omeprazole 40 mg capsule,delayed release(DR/EC) 40 mg PO BID metoprolol tartrate 25 mg tablet 12.5 mg PO BID Qty: 90 3RF (DME) Co-poly full length CUSTOM insoles with metatarsal pads See Rx Instructions .Route .MEDSUPPLY Qty: 1 0RF Rx Instructions: As directed by ADWOA&O valsartan-hydrochlorothiazide 160-12.5 mg tablet 1 tab PO DAILY Qty: 30 6RF montelukast [Singulair] 4 mg Granules In Packet 10 mg PO DAILY@07 trazodone 50 mg Tablet 25 mg PO BEDTIME isosorbide mononitrate 30 mg tablet extended release 24 hr 30 mg PO DAILY Qty: 30 3RF calcium carbonate 500 mg calcium (1,250 mg) Tablet See Rx Instructions .ROUTE .COMPLEX Rx Instructions: 500 mg orally as directed two times a week as needed metoclopramide HCl 10 mg Tablet 10 mg PO Q6H PRN (Reason: Nausea And Vomiting) Vitamin D3 25 mcg (1,000 unit) Capsule 25 mcg PO DAILY Multi-Vitamin W/Minerals Capsule 1 cap PO DAILY ezetimibe 10 mg Tablet 10 mg PO DAILY Creon 6,000-19,000 -30,000 unit Capsule,Delayed Release(Dr/Ec) 2 cap PO TID lactobacillus comb no.10 20 billion cell Capsule 20,000 mmu cells PO DAILY Rx Instructions: administer with a meal Discharge Orders: Discharge ED (Routine); Ordered 11/27/22 Ordered By: Sherine Cervantes Referrals: Kika Estes FNP [Primary Care Provider] - Patient Instructions: Abdominal Pain (ED) Activity Restrictions/Additional Instructions: As we discussed please speak to your primary care provider [facility] to see you for referral to a general surgeon for evaluation of your esophageal hiatal hernia might be indicated. 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
[2022-11-27 11:10] LABS: Anion Gap 17.7 (5-19); Potassium 4.7 mmol/L (3.5-5.1)
--- NOTE | 2022-11-27 11:12 | CT_ITS ---
WS: [id number] CT ABDOMEN PELVIS TECHNIQUE: Contrast-enhanced CT of the abdomen and pelvis with coronal and sagittal reformatted image s. CLINICAL INFORMATION: L abdominal pain, N/V/D COMPARISON: CT 02/25/2020 DLP: 573.[address] scans at [facility] use at least one of these dose optimization techniques: automated e xposure control; mA and/or kV adjustment per patient size (includes targeted exams where dose is matc hed to clinical indication); or iterative reconstruction. FINDINGS: Lung bases are well aerated. Mild diffuse fatty filtration of the liver. Prior cholecystectomy. Rosie l portal vein and splenic vein. Moderate esophageal hiatal hernia progressed compared to 2019. Rosie l spleen. Normal portal vein and splenic vein. Fatty atrophy of the pancreas. Physiologic prominence of the common bile duct postcholecystectomy. Adrenal glands are normal. Normal renal parenchymal enhancement bilaterally. LEFT renal cyst measurin g 2.3 cm. No hydronephrosis in either kidney. Normal caliber abdominal aorta. Prior appendectomy. Few sigmoid diverticuli. No evidence of acute diverticulitis. Fat-containing LEFT inguinal hernia wit h adjacent sigmoid colon. Loop of sigmoid colon closely abuts the hernia but no bowel herniation. Thi s is unchanged in appearance since 2019 Moderate spondylitic changes lumbar spine. No other suspicious findings. IMPRESSION: 1. Moderate esophageal hernia progressed compared to 2019 with partial intrathoracic stomach. 2. Fat-containing LEFT inguinal hernia with closely abutting sigmoid colon loop although no evidence of herniation. This is unchanged in appearance since 2019 3. No evidence of bowel obstruction. 4. No hydronephrosis in either kidney. Stable LEFT renal cyst. 5. Prior cholecystectomy. 6. No other remarkable findings.
[2022-11-27 11:30] VITALS: BP 149/65; PULSE 61; RESP 18; O2SAT 95
[2022-11-27 11:41] VITALS: RESP 18; O2SAT 96
[2022-11-27] MEDS: morphine 4 mg/mL SDV 1 mL IVP (11:41)
[2022-11-27] MEDS: sodium chloride 0.9% 1,000 ML 999 ML IV (11:41)
[2022-11-27] MEDS: iohexol 350 mg/mL 500 mL Btl (per mL) IV (11:59)
[2022-11-27 13:39] LABS: Add Urine Culture? No; Add Urine Microscopic? YES; Bacteria Urine TRACE /hpf; Bilirubin Urine Neg (Negative); Blood Urine Neg (Negative); Glucose Urine UA Norm (Normal); Ketones Urine Negative (Negative); Leukocyte Esterase Urine Negative (Negative); Mucus Urine TRACE /hpf; Nitrate Urine Negative (Negative); Protein Urine Trace (Negative); RBC Urine RARE /hpf (0-2); Squamous Epithelial Cell Urine RARE /hpf (0-5); Urine Appearance Clear (CLEAR); Urine Color Yellow (Yellow); Urobilinogen Urine Norm (Negative); WBC Urine RARE /hpf (0-5); pH Urine 6.5 (5-7)
== END 2022-11-27 13:23 | disposition home or self-care (01) ==
PROVIDERS: Emergency Provider Physician Assistant; PCP Nurse Practitioner
DX: K44.9 Diaphragmatic hernia without obstruction or gangrene (principal); R10.12 Left upper quadrant pain; Z87.891 Personal history of nicotine dependence; J44.9 Chronic obstructive pulmonary disease, unspecified; I10 Essential (primary) hypertension
CPT/HCPCS: 36415; 74177; 80053; 81001; 83690; 85025; 96374; 99285; J2270; J2405; J7030; Q9967

== ENCOUNTER → 2022-12-25 09:28 | Outpatient (BNVA) | payer OTHER, SELFPAY | PROVIDERS: PCP Nurse Practitioner; Visit Provider Surgery | DX: K44.9 Diaphragmatic hernia without obstruction or gangrene (principal); K46.9 Unspecified abdominal hernia without obstruction or gangrene | CPT/HCPCS: 99204; 99214 ==

== ENCOUNTER → 2024-05-06 10:03 | Outpatient (BNVA) | payer OTHER, SELFPAY | PROVIDERS: PCP Nurse Practitioner; Visit Provider Internal Medicine Cardiovascular Disease | DX: R07.9 Chest pain, unspecified (principal); I49.3 Ventricular premature depolarization; I47.20 Ventricular tachycardia, unspecified; I49.1 Atrial premature depolarization; I47.10 Supraventricular tachycardia, unspecified | CPT/HCPCS: 93246 ==

== ENCOUNTER → 2024-06-19 14:05 | Outpatient (BNVA) | payer OTHER, SELFPAY | PROVIDERS: PCP Nurse Practitioner; Visit Provider Internal Medicine Cardiovascular Disease | DX: I10 Essential (primary) hypertension (principal); R07.9 Chest pain, unspecified; J44.9 Chronic obstructive pulmonary disease, unspecified; R06.02 Shortness of breath; K44.9 Diaphragmatic hernia without obstruction or gangrene; Z87.891 Personal history of nicotine dependence | CPT/HCPCS: 99204 ==

== ENCOUNTER 2024-07-08 13:09 | Outpatient (CLI) | payer OTHER, SELFPAY ==
[2024-07-08 13:10] VITALS: BMI 26.0
--- NOTE | 2024-07-08 13:14 | ECG_ITS ---
[facility] 2024-[facility]08 Pat Name: Marques Jones Department: Room: Gender: Male Machine Hand: : 1960 Requested By: Garry Sam Order Number: [id number] Vanessa MD: Garry Sam M.D. Interpretive Statements Lung unchanged pre/post procedure; Intraprocedure shortess of breath and chest pain; Symptoms resoled by discharge PROCEDURE: At the baseline, the patient's blood pressure was 164/89 with a heart rate of 85. The baseline electrocardiogram showed normal sinus rhythm with normal ST-Ts. Diffuse nonspecific T wave changes. 4-hour progression.. The patient exercised for 6 minutes on a standard Sincere protocol. Patient attained a maximum heart rate of 155 beats per minute(100% of the maximum predicted heart rate) with a blood pressure at the peak exercise of 189/65 mm Hg. The EKG at the peak exercise revealed nonspecific IVCD possibly rate induced conduction delay. Patient did not have any chest pain or any significant cardiac arrhythmias with the exercise During the recovery phase, there were no new changes. Blood pressure at the end of the recovery phase was 132/63 mm Hg with a heart rate of 86 per minute. CONCLUSION: 1. Nonspecific EKG changes with treadmill exercise-features suggesting rate induced conduction delay 2. No exercise-induced chest pain or cardiac arrhythmia 3. Slightly impaired exercise tolerance, attained a maximum of 7.0 METs Electronically Signed On 07-09-2024 16:36:36 CDT by Garry Sam M.D. [email or web address]
--- NOTE | 2024-07-08 13:15 | USCV_ITS ---
Stress Echo Marques Jones Age: 64 Gender: M : 1960 Exam Date: 07/08/2024 14:04 Ordering Phys: Garry Sam MD ([email or web address]) Technologist: Exam Location: [facility] – [place] Indication: Chest pain Rhythm: Sinus Patient History: HTN, HLD, COPD; FORMER SMOKER Cardiac Medications: Non Statin, Beta Blockers, ARB/Thiazide diruretic Medications in past 24 hours: None Contrast: Stress Results Protocol: Sincere Total dose(mL): Exercise Duration (min:sec): 06:00 METS: 7.0 Resting HR: 85 Resting BP: 164 / 80 Peak HR: 155 Peak BP: 189 / 111 Max Predicted HR: 154 101 % Max Predicted HR Target HR: 131 Double Product: 53024 Stress Summary: The patient's target heart rate was achieved BP Response: Normal Reason for Termination: Test terminated after reaching target heart rate (85% max predicted) Cardiac Symptoms: Chest pain, Short of Breath ECG Analysis Resting ECG: Please see separate report Stress ECG: Please see separate report Arrhythmia: Please see separate report MEASUREMENTS (Male/Female) Normal Values FINDINGS Baseline echocardiogram with normal LV size and ejection fraction of 60%. Segmental wall motion analysis revealed no gross wall motion normalities. Normal cardiac chamber sizes. No pericardial effusion Peak exercise, there is good augmentation of all the segments with no exercise-induced wall motion abnormalities. During the recovery phase, the echocardiogram noted back to the baseline CONCLUSIONS 1. Normal echocardiographic response to exercise 2. No exercise-induced chest pain or cardiac arrhythmia Low probability for coronary ischemia, based on the above findings Dr Garry Sam MD FACC (Electronically Signed) Final Date: 09 Jul 2024 17:01 S
[2024-07-08 14:30] VITALS: BP 132/63; PULSE 86
== END 2024-07-08 13:10 | disposition home or self-care (01) ==
LOC: CDL 13:10
PROVIDERS: PCP Nurse Practitioner; Visit Provider Internal Medicine Cardiovascular Disease
DX: R07.9 Chest pain, unspecified (principal); R94.31 Abnormal electrocardiogram [ECG] [EKG]
CPT/HCPCS: 93017; 93350

== ENCOUNTER → 2024-11-04 08:54 | Outpatient (BNVA) | payer OTHER, SELFPAY | PROVIDERS: PCP Nurse Practitioner; Visit Provider Nurse Practitioner Family | DX: L30.4 Erythema intertrigo (principal); L82.1 Other seborrheic keratosis; D22.61 Melanocytic nevi of right upper limb, including shoulder; L57.0 Actinic keratosis | CPT/HCPCS: 17000; 99203 ==

== ENCOUNTER → 2024-12-12 08:03 | Outpatient (BNVA) | payer OTHER, SELFPAY | PROVIDERS: PCP Nurse Practitioner; Visit Provider Nurse Practitioner Family | DX: L30.4 Erythema intertrigo (principal); L82.1 Other seborrheic keratosis; D22.61 Melanocytic nevi of right upper limb, including shoulder | CPT/HCPCS: 99213 ==

== ENCOUNTER → 2025-01-02 09:57 | Outpatient (BNVA) | payer OTHER, SELFPAY | PROVIDERS: PCP Nurse Practitioner; Referring Provider Nurse Practitioner; Visit Provider Internal Medicine | DX: J44.1 Chronic obstructive pulmonary disease with (acute) exacerbation (principal); R91.8 Other nonspecific abnormal finding of lung field; T78.40XA Allergy, unspecified, initial encounter; X58.XXXA Exposure to other specified factors, initial encounter; Z87.01 Personal history of pneumonia (recurrent); Z87.09 Personal history of other diseases of the respiratory system; Z87.891 Personal history of nicotine dependence; J44.9 Chronic obstructive pulmonary disease, unspecified | CPT/HCPCS: 36415; 85025; 86003; 99204; Q3014 ==

== ENCOUNTER 2025-01-13 10:16 | Outpatient (CLI) | payer OTHER, SELFPAY ==
[2025-01-13 10:32] VITALS: PULSE 67; RESP 18; O2SAT 96
== END 2025-01-13 10:17 | disposition home or self-care (01) ==
LOC: RT 10:17
PROVIDERS: PCP Nurse Practitioner; Visit Provider Internal Medicine
DX: J44.9 Chronic obstructive pulmonary disease, unspecified (principal)
CPT/HCPCS: 94060; 94726; 94729; J7613

== ENCOUNTER → 2025-02-04 09:09 | Outpatient (BNVA) | payer OTHER, SELFPAY | PROVIDERS: Absent Provider Internal Medicine Cardiovascular Disease; PCP Nurse Practitioner; Visit Provider Nurse Practitioner Family | DX: I10 Essential (primary) hypertension (principal); J44.9 Chronic obstructive pulmonary disease, unspecified; E78.5 Hyperlipidemia, unspecified; Z87.891 Personal history of nicotine dependence | CPT/HCPCS: 99214 ==